=== PATIENT | female | born 1960 | race Caucasian/White ===

== ENCOUNTER 2016-07-02 13:48 | Emergency (ER) | payer OTHER ==
[~2016-07-02] VITALS: Ht 157.5 cm; Wt 75.4 kg
[~2016-07-02 13:48] MED LIST: ASCORBIC ACID500 M3 PO; ASPIR 8181 M1 PO; ATORVASTATIN CA80 MG PO; AUGMENTIN875 MG PO; BUSPAR10 MG PO; CARDIZEM CD,CA180 MG PO; DOCUSATE SODIU100 MG PO; DOXYCYCLINE HY100 M3 PO; DUONEB 2.5-0.5 M3 ML AEROSOL; ELIQUIS5 MG PO; FLUOXETINE HCL40 MG PO; FUROSEMIDE40 MG PO; GLIPIZIDE ER2.5 MG PO; GLUCOPHAGE500 MG PO; GLUCOTROL5 MG PO; JANUVIA100 MG PO; LEVAQUIN500 MG PO; LEVOFLOXACIN750 MG PO; LEXAPRO20 MG PO; LIPITOR40 MG PO; LIPITOR80 MG PO; LISINOPRIL2.5 MG PO; METFORMIN HCL1000 MG PO; MYLICON,MYLANTA80 MG PO; PREDNISONE10 M1 PO; PREDNISONE10 MG PO; PREDNISONE20 MG PO; PROAIR HFA8.5 GM IH; PROVENTIL HFA6.7 GM IH; PROVENTIL,2.5 MG/0.5 AEROSOL; SINGULAIR10 MG PO; SPIRIVA RESPIMAT4 GM IH; SYMBICORT60 INHALAT IH; TYLENOL EXTRA500 MG PO; VIBRAMYCIN100 MG PO; ZITHROMAX Z-PA250 MG PO
[2016-07-02 16:58] VITALS: BP 118/73
== END 2016-07-02 17:40 | disposition home or self-care (01) ==
LOC: EME 13:48
DX: J44.1 Chronic obstructive pulmonary disease with (acute) exacerbation (principal); E78.5 Hyperlipidemia, unspecified; I10 Essential (primary) hypertension; Z86.73 Personal history of transient ischemic attack (TIA), and cerebral infarction without residual deficits; F17.200 Nicotine dependence, unspecified, uncomplicated
CPT/HCPCS: 71020; 94640; 99281; 99284

== ENCOUNTER 2016-07-04 11:48 | Inpatient (IN) | payer OTHER ==
[~2016-07-04] VITALS: Ht 157.5 cm; Wt 71.0 kg
[2016-07-04 13:02] LABS: BASE EXCESS 20.2 mEq/L (-3 to +3); BICARBONATE 49.1 mEq/L (22-26); CARBOXY HGB 5.3 % (0-5); COMMENTS - BLOOD GASES NAC+; DEVICE PB 840 NIPPV; FI02 45 %; MODE SPONT; PCO2 91 mm Hg (35-45); PEEP 5 CM/H20; PO2 186 mm Hg (80-100); PRES. SUPPORT 15 CM/H2O; SITE RR; TOTAL RESP RATE 22 resp/min; pH 7.34 (7.35-7.45)
[2016-07-04 13:08] LABS: CHLORIDE 92 mEq/L (99-109); POTASSIUM 2.8 mEq/L (3.7-5.4); SODIUM 146 mEq/L (136-147)
[2016-07-04 13:09] LABS: GLUCOSE 267 mg/dL (70-99); HEMATOCRIT 30.1 % (36.0-46.0); MCH 29.3 PG (29.0-34.0); MCHC 28.9 G/DL (30.0-36.0); MCV 101.3 FL (83-99); MEAN PLAT.VOLUME 9.4 uM^3 (9.5-12.4); PLATELET COUNT 420 K/uL (156-360); RBC DIS.WIDTH-CV 16.1 % (11.8-14.6); RBC DIS.WIDTH-SD 59.2 % (39-53); RED BLOOD COUNT 2.97 M/uL (3.80-5.20)
[2016-07-04 13:11] LABS: ANION GAP 14 MEQ/L (2-14)
[2016-07-04 13:13] LABS: GFR ESTIMATE (CALCULATED) > 59 mL/min/
[2016-07-04 13:14] LABS: UREA NITROGEN (BUN) 6 mg/dL (9-23)
[2016-07-04 13:19] LABS: TROP-I INTERPRETATION NEGATIVE; TROPONIN-I 0.02 ng/mL (0.0-0.30)
[2016-07-04 17:28] VITALS: BP 127/55
[2016-07-04 17:30] VITALS: BP 127/55
[2016-07-04 17:59] LABS: MAGNESIUM 2.2 mg/dL (1.3-2.7)
[2016-07-04 18:21] LABS: POINT-OF-CARE METER ID UU14162636
[2016-07-04 19:09] LABS: METH RESISTANT S AUREUS PCR NEGATIVE (NEGATIVE)
[2016-07-04 19:10] LABS: PROBE CHECK PASS; SPECIMEN PROCESSING CONTROL PASS
[2016-07-04 20:00] VITALS: BP 113/54
[2016-07-04 22:00] VITALS: BP 138/67
[2016-07-05] VITALS (14 sets, daily range): BP systolic 108–143; BP diastolic 44–73
[2016-07-05 00:21] LABS: POINT-OF-CARE METER ID UU14162636
[2016-07-05 05:50] LABS: POINT-OF-CARE METER ID UU13113803
[2016-07-05 06:17] LABS: EOSINOPHIL (%) 0 % (0-5); HEMATOCRIT 28.2 % (36.0-46.0); IMMATURE GRANULOCYTE (%) 0.2 % (0.0-0.7); LYMPHOCYTE COUNT 0.5 K/uL (1.0-2.8); MCH 29.2 PG (29.0-34.0); MCHC 29.1 G/DL (30.0-36.0); MCV 100.4 FL (83-99); MEAN PLAT.VOLUME 9.5 uM^3 (9.5-12.4); MONOCYTE (%) 0.4 % (3-12); NEUTROPHIL (%) 88.2 % (45-76); PLATELET COUNT 329 K/uL (156-360); RBC DIS.WIDTH-SD 58.2 % (39-53); RED BLOOD COUNT 2.81 M/uL (3.80-5.20)
[2016-07-05 06:20] LABS: WHITE BLOOD COUNT 4.5 K/uL (4.1-10.2)
[2016-07-05 06:52] LABS: ANION GAP ND MEQ/L (2-14); CHLORIDE 97 MEQ/L (99-109); GFR ESTIMATE (CALCULATED) > 59 mL/min/; GLUCOSE 153 mg/dL (70-99); MAGNESIUM 1.7 mg/dl (1.3-2.7); SAMPLE HEMOLYSIS CHECK 0; SAMPLE ICTERIC CHECK 0; SAMPLE LIPEMIA CHECK 0; SODIUM 148 MEQ/L (136-147); UREA NITROGEN (BUN) 7 mg/dL (9-23)
[2016-07-05 06:54] LABS: CARBON DIOXIDE (BICARBONATE) > 40.0 MEQ/L (20-31); POTASSIUM 4.2 MEQ/L (3.7-5.4)
[2016-07-05 11:22] LABS: POINT-OF-CARE METER ID UU13113803
[2016-07-05] MEDS ORDERED: SINGULAIR10 MG PO (14:25)
[2016-07-05] MEDS ORDERED: BUSPIRONE HCL10 MG PO (14:27)
[2016-07-05] MEDS ORDERED: GLUCOTROL5 MG PO (14:28)
[2016-07-05] MEDS ORDERED: PROAIR HFA8.5 GM IH (14:33)
[2016-07-05] MEDS ORDERED: LIPITOR80 MG PO (14:34)
[2016-07-05] MEDS ORDERED: LEXAPRO20 MG PO (14:35)
[2016-07-05] MEDS ORDERED: SYMBICORT60 INHALAT IH (14:35)
[2016-07-05] MEDS ORDERED: GLUCOPHAGE1000 MG PO (14:36)
[2016-07-05] MEDS ORDERED: LEVOFLOXACIN500 MG PO (14:36)
[2016-07-05] MEDS ORDERED: SPIRIVA1 INHALATI IH (14:37)
[2016-07-05] MEDS ORDERED: ASCORBIC ACID500 M3 PO (14:37)
[2016-07-05] MEDS ORDERED: SPIRIVA RESPIMAT4 G1 IH (15:07)
[2016-07-05 17:32] LABS: POINT-OF-CARE METER ID UU14162636
[2016-07-05 22:47] LABS: POINT-OF-CARE METER ID UU14162636
[2016-07-06] VITALS (8 sets, daily range): BP systolic 124–160; BP diastolic 55–84
[2016-07-06 05:45] LABS: HEMATOCRIT 29.5 % (36.0-46.0); MCH 29.3 PG (29.0-34.0); MCHC 29.2 G/DL (30.0-36.0); MCV 100.3 FL (83-99); MEAN PLAT.VOLUME 9.6 uM^3 (9.5-12.4); PLATELET COUNT 344 K/uL (156-360); RBC DIS.WIDTH-CV 16.3 % (11.8-14.6); RBC DIS.WIDTH-SD 59.3 % (39-53); RED BLOOD COUNT 2.94 M/uL (3.80-5.20); WHITE BLOOD COUNT 5.8 K/uL (4.1-10.2)
[2016-07-06 06:18] LABS: EOSINOPHIL (%) 0 % (0-5); IMMATURE GRANULOCYTE (%) 0.3 % (0.0-0.7); LYMPHOCYTE COUNT 0.6 K/uL (1.0-2.8); MONOCYTE (%) 4.1 % (3-12); MONOCYTE COUNT 0.2 K/uL (0-0.8); NEUTROPHIL (%) 85.5 % (45-76)
[2016-07-06 06:20] LABS: ANION GAP ND MEQ/L (2-14); CHLORIDE 97 MEQ/L (99-109); GFR ESTIMATE (CALCULATED) > 59 mL/min/; GLUCOSE 201 mg/dL (70-99); POTASSIUM 4.1 MEQ/L (3.7-5.4); SAMPLE HEMOLYSIS CHECK 0; SAMPLE ICTERIC CHECK 0; SAMPLE LIPEMIA CHECK 0; SODIUM 147 MEQ/L (136-147); UREA NITROGEN (BUN) 18 mg/dL (9-23)
[2016-07-06 06:22] LABS: CARBON DIOXIDE (BICARBONATE) > 40.0 MEQ/L (20-31); MAGNESIUM 2.1 mg/dl (1.3-2.7)
[2016-07-06 17:22] LABS: POINT-OF-CARE METER ID UU13113748
[2016-07-06 22:14] LABS: POINT-OF-CARE METER ID UU13113748; POINT-OF-CARE USER ID PHATLC
[2016-07-07] VITALS (8 sets, daily range): BP systolic 89–144; BP diastolic 55–84
[2016-07-07 06:02] LABS: HEMATOCRIT 29.9 % (36.0-46.0); MCH 28.8 PG (29.0-34.0); MCHC 29.1 G/DL (30.0-36.0); MEAN PLAT.VOLUME 9.6 uM^3 (9.5-12.4); PLATELET COUNT 342 K/uL (156-360); RBC DIS.WIDTH-CV 16.1 % (11.8-14.6); RBC DIS.WIDTH-SD 58.4 % (39-53); RED BLOOD COUNT 3.02 M/uL (3.80-5.20); WHITE BLOOD COUNT 6.4 K/uL (4.1-10.2)
[2016-07-07 06:27] LABS: EOSINOPHIL (%) 0 % (0-5); IMMATURE GRANULOCYTE (%) 1.7 % (0.0-0.7); IMMATURE GRANULOCYTE COUNT 0.1 K/uL; LYMPHOCYTE COUNT 1.1 K/uL (1.0-2.8); MONOCYTE (%) 7.5 % (3-12); MONOCYTE COUNT 0.5 K/uL (0-0.8); NEUTROPHIL (%) 73.2 % (45-76); NEUTROPHIL COUNT 4.7 K/uL (1.8-6.4)
[2016-07-07 06:32] LABS: ALKALINE PHOSPHATASE 61 IU/L (3-129); ANION GAP ND MEQ/L (2-14); CHLORIDE 95 MEQ/L (99-109); GFR ESTIMATE (CALCULATED) > 59 mL/min/; GLUCOSE 180 mg/dL (70-99); POTASSIUM 3.7 MEQ/L (3.7-5.4); SAMPLE HEMOLYSIS CHECK 0; SAMPLE ICTERIC CHECK 0; SAMPLE LIPEMIA CHECK 0; SODIUM 145 MEQ/L (136-147); TOTAL BILIRUBIN 0.3 MG/DL (0.0-1.0); UREA NITROGEN (BUN) 14 mg/dL (9-23)
[2016-07-07 06:34] LABS: CARBON DIOXIDE (BICARBONATE) > 40.0 MEQ/L (20-31); MAGNESIUM 1.7 mg/dl (1.3-2.7)
[2016-07-07 09:59] LABS: INFLUENZA A VIRAL ANTIGEN NEGATIVE; INFLUENZA B VIRAL ANTIGEN NEGATIVE
[2016-07-07 11:57] LABS: POINT-OF-CARE METER ID UU13113731
[2016-07-07 12:46] LABS: ADD MIUA? YES; BILIRUBIN NEGATIVE; BLOOD TRACE; COLOR YELLOW ((YELLOW)); GLUCOSE (STRIP) NEGATIVE; KETONES NEGATIVE; LEUKOCYTES NEGATIVE; NITRITE NEGATIVE; PROTEIN (STRIP) NEGATIVE; SPECIFIC GRAVITY 1.013 (1.000-1.030); UROBILINOGEN 0.2 MG/DL (0.2-1.0)
[2016-07-07 13:20] LABS: WHITE BLOOD CELLS NONE SEEN /HPF (0-5)
[2016-07-07 13:21] LABS: BACTERIA NONE SEEN; CASTS PRESENT /LPF; CRYSTALS NONE SEEN; EPITHELIAL CELLS RARE; HYALINE CASTS 0-5 /LPF; MUCUS TRACE; RED BLOOD CELLS 0-5 /HPF (0-5); UCUL ADDED? NO
[2016-07-07 18:06] LABS: POINT-OF-CARE METER ID UU14162636
[2016-07-08 03:39] VITALS: BP 127/81
[2016-07-08 06:32] LABS: EOSINOPHIL (%) 0.1 % (0-5); HEMATOCRIT 30.5 % (36.0-46.0); IMMATURE GRANULOCYTE (%) 1.8 % (0.0-0.7); IMMATURE GRANULOCYTE COUNT 0.1 K/uL; LYMPHOCYTE COUNT 2.1 K/uL (1.0-2.8); MCH 29.2 PG (29.0-34.0); MCHC 29.8 G/DL (30.0-36.0); MCV 97.8 FL (83-99); MEAN PLAT.VOLUME 9.4 uM^3 (9.5-12.4); MONOCYTE (%) 9.4 % (3-12); MONOCYTE COUNT 0.7 K/uL (0-0.8); NEUTROPHIL (%) 59.6 % (45-76); NEUTROPHIL COUNT 4.2 K/uL (1.8-6.4); PLATELET COUNT 336 K/uL (156-360); RBC DIS.WIDTH-CV 15.9 % (11.8-14.6); RBC DIS.WIDTH-SD 55.9 % (39-53); RED BLOOD COUNT 3.12 M/uL (3.80-5.20); WHITE BLOOD COUNT 7.1 K/uL (4.1-10.2)
[2016-07-08 07:07] LABS: ALKALINE PHOSPHATASE 61 IU/L (3-129); ANION GAP ND MEQ/L (2-14); CHLORIDE 95 MEQ/L (99-109); GFR ESTIMATE (CALCULATED) > 59 mL/min/; GLUCOSE 138 mg/dL (70-99); MAGNESIUM 1.5 mg/dl (1.3-2.7); POTASSIUM 3.4 MEQ/L (3.7-5.4); SAMPLE HEMOLYSIS CHECK 0; SAMPLE ICTERIC CHECK 0; SAMPLE LIPEMIA CHECK 0; SODIUM 146 MEQ/L (136-147); TOTAL BILIRUBIN 0.3 MG/DL (0.0-1.0); UREA NITROGEN (BUN) 12 mg/dL (9-23)
[2016-07-08 07:14] LABS: CARBON DIOXIDE (BICARBONATE) > 40.0 MEQ/L (20-31)
[2016-07-08 07:53] VITALS: BP 135/86
[2016-07-08 08:03] LABS: INTERNAL CONTROL VALID? YES
[2016-07-08 12:14] LABS: POINT-OF-CARE METER ID UU14174225
[2016-07-08 12:19] VITALS: BP 141/72
[2016-07-08 19:35] VITALS: BP 119/73
[2016-07-09 00:06] VITALS: BP 129/61
[2016-07-09 03:51] VITALS: BP 121/69
[2016-07-09 06:40] LABS: EOSINOPHIL (%) 0.1 % (0-5); HEMATOCRIT 30.9 % (36.0-46.0); IMMATURE GRANULOCYTE (%) 1.2 % (0.0-0.7); IMMATURE GRANULOCYTE COUNT 0.1 K/uL; LYMPHOCYTE COUNT 1.7 K/uL (1.0-2.8); MCH 29.6 PG (29.0-34.0); MCHC 30.4 G/DL (30.0-36.0); MCV 97.2 FL (83-99); MEAN PLAT.VOLUME 9.7 uM^3 (9.5-12.4); MONOCYTE COUNT 0.7 K/uL (0-0.8); NEUTROPHIL (%) 66.1 % (45-76); NEUTROPHIL COUNT 4.9 K/uL (1.8-6.4); PLATELET COUNT 345 K/uL (156-360); RBC DIS.WIDTH-SD 55.4 % (39-53); RED BLOOD COUNT 3.18 M/uL (3.80-5.20); WHITE BLOOD COUNT 7.4 K/uL (4.1-10.2)
[2016-07-09 07:05] LABS: ANION GAP ND MEQ/L (2-14); CHLORIDE 97 MEQ/L (99-109); GFR ESTIMATE (CALCULATED) > 59 mL/min/; GLUCOSE 122 mg/dL (70-99); MAGNESIUM 1.4 mg/dl (1.3-2.7); POTASSIUM 3.6 MEQ/L (3.7-5.4); SAMPLE HEMOLYSIS CHECK 0; SAMPLE ICTERIC CHECK 0; SAMPLE LIPEMIA CHECK 0; SODIUM 145 MEQ/L (136-147); UREA NITROGEN (BUN) 12 mg/dL (9-23)
[2016-07-09 07:06] LABS: CARBON DIOXIDE (BICARBONATE) > 40.0 MEQ/L (20-31)
[2016-07-09 07:39] VITALS: BP 126/71
[2016-07-09 10:55] VITALS: BP 131/69
[2016-07-09 11:36] LABS: POINT-OF-CARE METER ID UU14174225
[2016-07-09] MEDS ORDERED: GLUCOPHAGE1000 MG PO (14:21)
[2016-07-09] MEDS ORDERED: PROAIR HFA8.5 GM IH (14:21)
[2016-07-09] MEDS ORDERED: ELIQUIS5 MG PO (14:21)
[2016-07-09] MEDS ORDERED: LIPITOR80 MG PO (14:21)
[2016-07-09] MEDS ORDERED: LEVOFLOXACIN500 MG PO (14:21)
[2016-07-09] MEDS ORDERED: SINGULAIR10 MG PO (14:21)
[2016-07-09] MEDS ORDERED: GLUCOTROL5 MG PO (14:21)
[2016-07-09] MEDS ORDERED: SPIRIVA RESPIMAT4 G1 IH (14:21)
[2016-07-09] MEDS ORDERED: PREDNISONE20 MG PO ×2 (14:21→14:24)
[2016-07-09] MEDS ORDERED: ASCORBIC ACID500 M3 PO (14:21)
[2016-07-09] MEDS ORDERED: LEXAPRO20 MG PO (14:21)
[2016-07-09] MEDS ORDERED: BUSPIRONE HCL10 MG PO (14:21)
[2016-07-09] MEDS ORDERED: SYMBICORT60 INHALAT IH (14:21)
[2016-07-09 15:06] VITALS: BP 129/78
== END 2016-07-09 17:23 | disposition home health service (06) | DRG 189 ==
LOC: EME → EDBD 11:48 → EME 11:48 → EDOF 15:27 → 5SOUTH 15:27 → 4WEST 15:27 → 5SOUTH 07-07 19:38
PROVIDERS: Emergency Medicine; Hospitalist; Internal Medicine; Internal Medicine Nephrology
PROC: 5A09457 Assistance with Respiratory Ventilation, 24-96 Consecutive Hours, Continuous Positive Airway Pressure (ICD-10-PCS; principal; 2016-07-05)
DX: J96.22 Acute and chronic respiratory failure with hypercapnia (principal); J18.9 Pneumonia, unspecified organism; J44.1 Chronic obstructive pulmonary disease with (acute) exacerbation; I47.1 Supraventricular tachycardia; E87.2 Acidosis; I48.92 Unspecified atrial flutter; F33.9 Major depressive disorder, recurrent, unspecified; J96.21 Acute and chronic respiratory failure with hypoxia; F17.210 Nicotine dependence, cigarettes, uncomplicated; I10 Essential (primary) hypertension; E11.40 Type 2 diabetes mellitus with diabetic neuropathy, unspecified; E87.6 Hypokalemia; Z99.81 Dependence on supplemental oxygen; E78.2 Mixed hyperlipidemia; G47.33 Obstructive sleep apnea (adult) (pediatric); Z91.128 Patient's intentional underdosing of medication regimen for other reason; G89.29 Other chronic pain; F41.0 Panic disorder [episodic paroxysmal anxiety]; E66.9 Obesity, unspecified; E11.65 Type 2 diabetes mellitus with hyperglycemia; Z68.28 Body mass index [BMI] 28.0-28.9, adult; I69.398 Other sequelae of cerebral infarction; Z82.49 Family history of ischemic heart disease and other diseases of the circulatory system
CPT/HCPCS: 36600; 71010; 71020; 71260; 80048; 80053; 81003; 82803; 82948; 83735; 84100; 84484; 85025; 85027; 87449; 87502; 87641; 93005; 94002; 94003; 94640; 94640 76; 94644; 94660; 94760; 94799; 97530 GO; 99202; 99281; 99284; 99285; J0171; J1100; J1650; J1815; J1956; J2060; J2920; J2930; J3475; J3480; J7512; J7644; S0028

== ENCOUNTER 2016-07-22 16:29 | Inpatient (IN) | payer OTHER ==
[~2016-07-22] VITALS: Ht 157.5 cm; Wt 77.1 kg
[~2016-07-22 16:29] MED LIST changes: +BUSPIRONE HCL10 MG PO; +GLUCOPHAGE1000 MG PO; +LEVOFLOXACIN500 MG PO; +SPIRIVA RESPIMAT4 G1 IH; +SPIRIVA1 INHALATI IH
[2016-07-22 16:48] LABS: BASE EXCESS 26.2 mEq/L (-3 to +3); BICARBONATE 55.8 mEq/L (22-26); CARBOXY HGB 4.9 % (0-5); PCO2 88 mm Hg (35-45); PO2 175 mm Hg (80-100); pH 7.41 (7.35-7.45)
[2016-07-22 16:54] LABS: COMMENTS - BLOOD GASES A+C+; DEVICE 840 MASK VENT; FI02 50 %; MODE SPONT; SITE LR; TOTAL RESP RATE 27 resp/min
[2016-07-22 16:55] LABS: PEEP 5 CM/H20; PRES. SUPPORT 10 CM/H2O; TIDAL VOLUME 363 ML
[2016-07-22 17:49] LABS: CHLORIDE 90 mEq/L (99-109); EOSINOPHIL (%) 0.2 % (0-5); HEMATOCRIT 31.8 % (36.0-46.0); IMMATURE GRANULOCYTE (%) 0.2 % (0.0-0.7); IMMATURE GRANULOCYTE COUNT 0.4 K/uL; LYMPHOCYTE COUNT 0.8 K/uL (1.0-2.8); MCH 28.9 PG (29.0-34.0); MCHC 29.6 G/DL (30.0-36.0); MCV 97.8 FL (83-99); MEAN PLAT.VOLUME 9.2 uM^3 (9.5-12.4); MONOCYTE (%) 4.1 % (3-12); MONOCYTE COUNT 0.7 K/uL (0-0.8); NEUTROPHIL (%) 90.6 % (45-76); NEUTROPHIL COUNT 14.7 K/uL (1.8-6.4); PLATELET COUNT 318 K/uL (156-360); RBC DIS.WIDTH-CV 15.8 % (11.8-14.6); RBC DIS.WIDTH-SD 54.1 % (39-53); RED BLOOD COUNT 3.25 M/uL (3.80-5.20); SODIUM 146 mEq/L (136-147)
[2016-07-22 17:50] LABS: INTER. NORMALIZED RATIO 1.1; PROTHROMBIN TIME 11.7 (9.2-11.2); PTT 29.3 (25-32)
[2016-07-22 17:50] LABS: MAGNESIUM 2.1 mg/dL (1.3-2.7)
[2016-07-22 17:51] LABS: GLUCOSE 155 mg/dL (70-99)
[2016-07-22 17:53] LABS: ANION GAP 13 MEQ/L (2-14)
[2016-07-22 17:55] LABS: GFR ESTIMATE (CALCULATED) > 59 mL/min/
[2016-07-22 17:56] LABS: UREA NITROGEN (BUN) 7 mg/dL (9-23)
[2016-07-22 18:00] LABS: CARBON DIOXIDE (BICARBONATE) > 40.0 mEq/L (20-31); POTASSIUM 2.4 mEq/L (3.7-5.4)
[2016-07-22 18:02] LABS: TROP-I INTERPRETATION NEGATIVE; TROPONIN-I 0.04 ng/mL (0.0-0.30)
[2016-07-22 18:30] LABS: INFLUENZA A VIRAL ANTIGEN NEGATIVE; INFLUENZA B VIRAL ANTIGEN NEGATIVE
[2016-07-22 18:39] LABS: WHITE BLOOD COUNT 16.3 K/uL (4.1-10.2)
[2016-07-22 19:06] LABS: BASE EXCESS 26.9 mEq/L (-3 to +3); CARBOXY HGB 4.7 % (0-5); pH 7.44 (7.35-7.45)
[2016-07-22 19:07] LABS: COMMENTS - BLOOD GASES A+C+; CONTINUOUS POS AIRWAY PRESSURE 5 cm H2O; DEVICE 840 MASK VENT; FI02 30 %; MODE SPONT; PCO2 81 mm Hg (35-45); PO2 66 mm Hg (80-100); PRES. SUPPORT 10 CM/H2O; SITE LR; TOTAL RESP RATE 27 resp/min
[2016-07-22] MEDS ORDERED: LEXAPRO20 MG PO (20:31)
[2016-07-22] MEDS ORDERED: SINGULAIR10 MG PO (20:32)
[2016-07-22] MEDS ORDERED: VITAMIN C500 M1 PO (20:34)
[2016-07-22 21:30] VITALS: BP 151/73
[2016-07-22 22:00] VITALS: BP 154/70
[2016-07-22 22:58] LABS: METH RESISTANT S AUREUS PCR POSITIVE (NEGATIVE)
[2016-07-22 23:00] VITALS: BP 137/67
[2016-07-22 23:01] LABS: PROBE CHECK PASS
[2016-07-23] VITALS (23 sets, daily range): BP systolic 107–156; BP diastolic 43–82
[2016-07-23 05:38] LABS: BASE EXCESS 27.2 mEq/L (-3 to +3); BICARBONATE 55.8 mEq/L (22-26); CARBOXY HGB 3.1 % (0-5); METHEMOGLOBIN 1.7 % (0-1.5); PO2 68 mm Hg (80-100); pH 7.42 (7.35-7.45)
[2016-07-23 05:39] LABS: COMMENTS - BLOOD GASES A+C+; DEVICE 840; FI02 30 %; PCO2 86 mm Hg (35-45); SITE LR; TOTAL RESP RATE 29 resp/min
[2016-07-23 06:31] LABS: ANION GAP ND MEQ/L (2-14); CARBON DIOXIDE (BICARBONATE) > 40.0 MEQ/L (20-31); CHLORIDE 91 MEQ/L (99-109); GFR ESTIMATE (CALCULATED) > 59 mL/min/; GLUCOSE 188 mg/dL (70-99); SAMPLE HEMOLYSIS CHECK 0; SAMPLE ICTERIC CHECK 0; SAMPLE LIPEMIA CHECK 0; SODIUM 145 MEQ/L (136-147); UREA NITROGEN (BUN) 6 mg/dL (9-23)
[2016-07-24] VITALS (24 sets, daily range): BP systolic 116–171; BP diastolic 48–121
[2016-07-24 05:22] LABS: BASE EXCESS 21.6 mEq/L (-3 to +3); CARBOXY HGB 2.3 % (0-5); COMMENTS - BLOOD GASES A+C+; DEVICE 840; FI02 30 %; METHEMOGLOBIN 1.3 % (0-1.5); MODE SPONT; PCO2 66 mm Hg (35-45); PO2 76 mm Hg (80-100); SITE LR; pH 7.47 (7.35-7.45)
[2016-07-24 05:23] LABS: PEEP 5 CM/H20; PRES. SUPPORT 15 CM/H2O; TOTAL RESP RATE 29 resp/min
[2016-07-24 06:21] LABS: ANION GAP 10 MEQ/L (2-14); CHLORIDE 97 MEQ/L (99-109); GFR ESTIMATE (CALCULATED) > 59 mL/min/; GLUCOSE 170 mg/dL (70-99); POTASSIUM 3.3 MEQ/L (3.7-5.4); SAMPLE HEMOLYSIS CHECK 0; SAMPLE ICTERIC CHECK 0; SAMPLE LIPEMIA CHECK 0; SODIUM 147 MEQ/L (136-147); UREA NITROGEN (BUN) 9 mg/dL (9-23)
[2016-07-24 06:59] LABS: EOSINOPHIL (%) 0 % (0-5); IMMATURE GRANULOCYTE (%) 0.2 % (0.0-0.7); LYMPHOCYTE COUNT 0.5 K/uL (1.0-2.8); MCH 28.3 PG (29.0-34.0); MCHC 29.6 G/DL (30.0-36.0); MCV 95.4 FL (83-99); MEAN PLAT.VOLUME 9.3 uM^3 (9.5-12.4); MONOCYTE (%) 5.1 % (3-12); MONOCYTE COUNT 0.5 K/uL (0-0.8); NEUTROPHIL (%) 89.7 % (45-76); NEUTROPHIL COUNT 9.5 K/uL (1.8-6.4); PLATELET COUNT 305 K/uL (156-360); RBC DIS.WIDTH-CV 16.2 % (11.8-14.6); RBC DIS.WIDTH-SD 56.6 % (39-53); RED BLOOD COUNT 2.83 M/uL (3.80-5.20)
[2016-07-24 07:00] LABS: WHITE BLOOD COUNT 10.6 K/uL (4.1-10.2)
[2016-07-24 14:04] LABS: BASE EXCESS 13.9 mEq/L (-3 to +3); BICARBONATE 41.2 mEq/L (22-26); DEVICE HHFNC; FI02 30 %; METHEMOGLOBIN 1.5 % (0-1.5); O2 FLOW 40 L/MIN; PCO2 68 mm Hg (35-45); PO2 69 mm Hg (80-100); SITE LR; pH 7.39 (7.35-7.45)
[2016-07-24 14:05] LABS: TOTAL RESP RATE 28 resp/min
[2016-07-24 15:45] LABS: POINT-OF-CARE METER ID UU13113803
[2016-07-24 21:44] LABS: POINT-OF-CARE METER ID UU14162636
[2016-07-25] VITALS (24 sets, daily range): BP systolic 100–170; BP diastolic 54–89
[2016-07-25 08:12] LABS: POINT-OF-CARE METER ID UU13113748
[2016-07-25 12:15] LABS: POINT-OF-CARE METER ID UU14162636
[2016-07-25 15:45] LABS: POINT-OF-CARE METER ID UU14162636
[2016-07-25 22:05] LABS: POINT-OF-CARE METER ID UU13113748; POINT-OF-CARE USER ID LABHNS84
[2016-07-26] VITALS (25 sets, daily range): BP systolic 132–167; BP diastolic 59–105
[2016-07-26 06:19] LABS: ANION GAP 6 MEQ/L (2-14); CHLORIDE 97 MEQ/L (99-109); GFR ESTIMATE (CALCULATED) > 59 mL/min/; GLUCOSE 199 mg/dL (70-99); POTASSIUM 3.8 MEQ/L (3.7-5.4); SAMPLE HEMOLYSIS CHECK 0; SAMPLE ICTERIC CHECK 0; SAMPLE LIPEMIA CHECK 0; SODIUM 142 MEQ/L (136-147); UREA NITROGEN (BUN) 9 mg/dL (9-23)
[2016-07-26 06:28] LABS: BASE EXCESS 14.6 mEq/L (-3 to +3); BICARBONATE 40.8 mEq/L (22-26); CARBOXY HGB 1.9 % (0-5); METHEMOGLOBIN 1.6 % (0-1.5); PO2 64 mm Hg (80-100); pH 7.44 (7.35-7.45)
[2016-07-26 06:29] LABS: COMMENTS - BLOOD GASES C+; DEVICE 840; FI02 30 %; MODE NIV; PCO2 60 mm Hg (35-45); PEEP 5 CM/H20; PRES. SUPPORT 15 CM/H2O; SITE RR; TOTAL RESP RATE 26 resp/min
[2016-07-26 08:29] LABS: POINT-OF-CARE METER ID UU13113748
[2016-07-26 21:51] LABS: POINT-OF-CARE METER ID UU13113731; POINT-OF-CARE USER ID ENVSME70
[2016-07-27] VITALS (24 sets, daily range): BP systolic 94–150; BP diastolic 53–89
[2016-07-27 07:05] LABS: ANION GAP 7 MEQ/L (2-14); CHLORIDE 97 MEQ/L (99-109); GFR ESTIMATE (CALCULATED) > 59 mL/min/; GLUCOSE 180 mg/dL (70-99); POTASSIUM 3.9 MEQ/L (3.7-5.4); SAMPLE HEMOLYSIS CHECK 0; SAMPLE ICTERIC CHECK 0; SAMPLE LIPEMIA CHECK 0; SODIUM 143 MEQ/L (136-147); UREA NITROGEN (BUN) 7 mg/dL (9-23)
[2016-07-27 08:32] LABS: POINT-OF-CARE METER ID UU13113803
[2016-07-27 11:52] LABS: POINT-OF-CARE METER ID UU13113803
[2016-07-27 17:21] LABS: POINT-OF-CARE METER ID UU13113803
[2016-07-27 23:24] LABS: POINT-OF-CARE METER ID UU13113803; POINT-OF-CARE USER ID LABHNS84
[2016-07-28] VITALS (26 sets, daily range): BP systolic 0–151; BP diastolic 0–93
[2016-07-28 08:06] LABS: POINT-OF-CARE METER ID UU13113731
[2016-07-28 12:13] LABS: ANION GAP 9 MEQ/L (2-14); CHLORIDE 97 MEQ/L (99-109); GFR ESTIMATE (CALCULATED) > 59 mL/min/; GLUCOSE 240 mg/dL (70-99); POTASSIUM 4.4 MEQ/L (3.7-5.4); SAMPLE HEMOLYSIS CHECK 0; SAMPLE ICTERIC CHECK 0; SAMPLE LIPEMIA CHECK 0; SODIUM 144 MEQ/L (136-147); UREA NITROGEN (BUN) 10 mg/dL (9-23)
[2016-07-28 12:50] LABS: POINT-OF-CARE METER ID UU13113803
[2016-07-28 16:52] LABS: POINT-OF-CARE METER ID UU13113803
[2016-07-28 22:42] LABS: POINT-OF-CARE METER ID UU14162636; POINT-OF-CARE USER ID RADDRS44
[2016-07-29] VITALS (28 sets, daily range): BP systolic 81–145; BP diastolic 48–87
[2016-07-29 07:33] LABS: POINT-OF-CARE METER ID UU14162636
[2016-07-29 09:16] LABS: ALKALINE PHOSPHATASE 74 IU/L (3-129); ANION GAP 8 MEQ/L (2-14); CHLORIDE 96 MEQ/L (99-109); GFR ESTIMATE (CALCULATED) > 59 mL/min/; GLUCOSE 262 mg/dL (70-99); MAGNESIUM 2.1 mg/dl (1.3-2.7); POTASSIUM 4.5 MEQ/L (3.7-5.4); SAMPLE HEMOLYSIS CHECK 0; SAMPLE ICTERIC CHECK 0; SAMPLE LIPEMIA CHECK 0; SODIUM 144 MEQ/L (136-147); TOTAL BILIRUBIN 0.3 MG/DL (0.0-1.0); UREA NITROGEN (BUN) 10 mg/dL (9-23)
[2016-07-29 21:48] LABS: POINT-OF-CARE USER ID LABHNS84
[2016-07-30] VITALS (20 sets, daily range): BP systolic 91–131; BP diastolic 57–90
[2016-07-30 05:59] LABS: HEMATOCRIT 31.6 % (36.0-46.0); MCH 28.5 PG (29.0-34.0); MCHC 28.5 G/DL (30.0-36.0); MEAN PLAT.VOLUME 9.3 uM^3 (9.5-12.4); PLATELET COUNT 443 K/uL (156-360); RBC DIS.WIDTH-SD 61.2 % (39-53); RED BLOOD COUNT 3.16 M/uL (3.80-5.20); WHITE BLOOD COUNT 9.8 K/uL (4.1-10.2)
[2016-07-30 06:19] LABS: ANION GAP ND MEQ/L (2-14); CHLORIDE 95 MEQ/L (99-109); GFR ESTIMATE (CALCULATED) > 59 mL/min/; GLUCOSE 224 mg/dL (70-99); MAGNESIUM 1.8 mg/dl (1.3-2.7); POTASSIUM 4.9 MEQ/L (3.7-5.4); SAMPLE HEMOLYSIS CHECK 0; SAMPLE ICTERIC CHECK 0; SAMPLE LIPEMIA CHECK 0; SODIUM 146 MEQ/L (136-147); UREA NITROGEN (BUN) 12 mg/dL (9-23)
[2016-07-30 06:38] LABS: CARBON DIOXIDE (BICARBONATE) > 40.0 MEQ/L (20-31)
[2016-07-30 08:44] LABS: POINT-OF-CARE METER ID UU13113803
[2016-07-30 12:10] LABS: POINT-OF-CARE METER ID UU14162636
[2016-07-30 18:02] LABS: POINT-OF-CARE METER ID UU14162636
[2016-07-30 22:17] LABS: POINT-OF-CARE METER ID UU14162636
[2016-07-31] VITALS (11 sets, daily range): BP systolic 98–138; BP diastolic 48–81
[2016-07-31 06:17] LABS: HEMATOCRIT 31.2 % (36.0-46.0); MCH 28.6 PG (29.0-34.0); MCHC 29.2 G/DL (30.0-36.0); MCV 98.1 FL (83-99); MEAN PLAT.VOLUME 9.1 uM^3 (9.5-12.4); PLATELET COUNT 436 K/uL (156-360); RBC DIS.WIDTH-CV 16.8 % (11.8-14.6); RED BLOOD COUNT 3.18 M/uL (3.80-5.20)
[2016-07-31 06:23] LABS: WHITE BLOOD COUNT 13.2 K/uL (4.1-10.2)
[2016-07-31 06:44] LABS: ANION GAP ND MEQ/L (2-14); CHLORIDE 91 MEQ/L (99-109); GFR ESTIMATE (CALCULATED) > 59 mL/min/; GLUCOSE 292 mg/dL (70-99); MAGNESIUM 1.6 mg/dl (1.3-2.7); POTASSIUM 5.1 MEQ/L (3.7-5.4); SAMPLE HEMOLYSIS CHECK 0; SAMPLE ICTERIC CHECK 0; SAMPLE LIPEMIA CHECK 0; SODIUM 144 MEQ/L (136-147); UREA NITROGEN (BUN) 12 mg/dL (9-23)
[2016-07-31 06:54] LABS: CARBON DIOXIDE (BICARBONATE) > 40.0 MEQ/L (20-31)
[2016-07-31 08:47] LABS: BASE EXCESS 28.1 mEq/L (-3 to +3); CARBOXY HGB 1.6 % (0-5); METHEMOGLOBIN 1.6 % (0-1.5); PCO2 90 mm Hg (35-45); PO2 166 mm Hg (80-100); pH 7.41 (7.35-7.45)
[2016-07-31 08:48] LABS: COMMENTS - BLOOD GASES A+C+; DEVICE NC; O2 FLOW 6 L/MIN; SITE RR; TOTAL RESP RATE 12 resp/min
[2016-07-31 22:57] LABS: POINT-OF-CARE METER ID UU14162636
[2016-08-01] VITALS (9 sets, daily range): BP systolic 96–173; BP diastolic 58–88
[2016-08-01 05:52] LABS: HEMATOCRIT 32.1 % (36.0-46.0); MCH 28.8 PG (29.0-34.0); MCHC 29.9 G/DL (30.0-36.0); MCV 96.4 FL (83-99); MEAN PLAT.VOLUME 9.5 uM^3 (9.5-12.4); PLATELET COUNT 464 K/uL (156-360); RBC DIS.WIDTH-CV 16.5 % (11.8-14.6); RBC DIS.WIDTH-SD 57.9 % (39-53); RED BLOOD COUNT 3.33 M/uL (3.80-5.20); WHITE BLOOD COUNT 10.1 K/uL (4.1-10.2)
[2016-08-01 06:38] LABS: ANION GAP ND MEQ/L (2-14); CHLORIDE 87 MEQ/L (99-109); GFR ESTIMATE (CALCULATED) > 59 mL/min/; GLUCOSE 269 mg/dL (70-99); MAGNESIUM 1.5 mg/dl (1.3-2.7); POTASSIUM 4.3 MEQ/L (3.7-5.4); SAMPLE HEMOLYSIS CHECK 0; SAMPLE ICTERIC CHECK 0; SAMPLE LIPEMIA CHECK 0; SODIUM 140 MEQ/L (136-147); UREA NITROGEN (BUN) 13 mg/dL (9-23)
[2016-08-01 06:39] LABS: CARBON DIOXIDE (BICARBONATE) > 40.0 MEQ/L (20-31)
[2016-08-01 12:36] LABS: POINT-OF-CARE METER ID UU13113803
[2016-08-01 22:38] LABS: POINT-OF-CARE METER ID UU14149397
[2016-08-02] VITALS (7 sets, daily range): BP systolic 100–166; BP diastolic 57–82
[2016-08-02 06:24] LABS: HEMATOCRIT 33.1 % (36.0-46.0); MCH 27.5 PG (29.0-34.0); MCHC 28.7 G/DL (30.0-36.0); MCV 95.7 FL (83-99); MEAN PLAT.VOLUME 9.1 uM^3 (9.5-12.4); NRBC (%) 0.2 /100 WBC (0-0); PLATELET COUNT 491 K/uL (156-360); RBC DIS.WIDTH-CV 16.7 % (11.8-14.6); RBC DIS.WIDTH-SD 58.2 % (39-53); RED BLOOD COUNT 3.46 M/uL (3.80-5.20); WHITE BLOOD COUNT 10.1 K/uL (4.1-10.2)
[2016-08-02 06:26] LABS: POINT-OF-CARE METER ID UU14188577
[2016-08-02 06:48] LABS: ANION GAP ND MEQ/L (2-14); CHLORIDE 87 MEQ/L (99-109); GFR ESTIMATE (CALCULATED) > 59 mL/min/; GLUCOSE 289 mg/dL (70-99); MAGNESIUM 1.4 mg/dl (1.3-2.7); POTASSIUM 3.7 MEQ/L (3.7-5.4); SAMPLE HEMOLYSIS CHECK 0; SAMPLE ICTERIC CHECK 0; SAMPLE LIPEMIA CHECK 0; SODIUM 139 MEQ/L (136-147); UREA NITROGEN (BUN) 14 mg/dL (9-23)
[2016-08-02 06:57] LABS: CARBON DIOXIDE (BICARBONATE) > 40.0 MEQ/L (20-31)
[2016-08-02 08:51] LABS: EOSINOPHIL (%) 0 % (0-5); HEMATOLOGY COMMENT 1 SMEAR COMPATIBLE; IMMATURE GRANULOCYTE (%) 2.5 % (0.0-0.7); IMMATURE GRANULOCYTE COUNT 0.3 K/uL; LYMPHOCYTE COUNT 0.3 K/uL (1.0-2.8); MONOCYTE (%) 4.2 % (3-12); MONOCYTE COUNT 0.4 K/uL (0-0.8); NEUTROPHIL (%) 89.9 % (45-76); NEUTROPHIL COUNT 9.1 K/uL (1.8-6.4); PLAT.SUFFICIENCY INCREASED; USER ID TLW
[2016-08-02 09:09] LABS: BICARBONATE 54.2 mEq/L (22-26); CARBOXY HGB 1.8 % (0-5); COMMENTS - BLOOD GASES A+C+; DEVICE NC; METHEMOGLOBIN 1.9 % (0-1.5); O2 FLOW 4 L/MIN; PCO2 78 mm Hg (35-45); PO2 79 mm Hg (80-100); SITE RR; pH 7.45 (7.35-7.45)
[2016-08-02 09:10] LABS: TOTAL RESP RATE 22 resp/min
[2016-08-02 21:32] LABS: POINT-OF-CARE METER ID UU14149397
[2016-08-03 04:34] VITALS: BP 149/67
[2016-08-03 05:38] LABS: HEMATOCRIT 32.4 % (36.0-46.0); MCH 28.2 PG (29.0-34.0); MCHC 29.6 G/DL (30.0-36.0); MCV 95.3 FL (83-99); MEAN PLAT.VOLUME 9.5 uM^3 (9.5-12.4); PLATELET COUNT 446 K/uL (156-360); RBC DIS.WIDTH-CV 16.4 % (11.8-14.6); RBC DIS.WIDTH-SD 57.6 % (39-53); WHITE BLOOD COUNT 9.8 K/uL (4.1-10.2)
[2016-08-03 06:16] LABS: ANION GAP ND MEQ/L (2-14); CARBON DIOXIDE (BICARBONATE) > 40.0 MEQ/L (20-31); CHLORIDE 87 MEQ/L (99-109); GFR ESTIMATE (CALCULATED) > 59 mL/min/; GLUCOSE 253 mg/dL (70-99); MAGNESIUM 1.9 mg/dl (1.3-2.7); POTASSIUM 3.7 MEQ/L (3.7-5.4); SAMPLE HEMOLYSIS CHECK 0; SAMPLE ICTERIC CHECK 0; SAMPLE LIPEMIA CHECK 0; SODIUM 141 MEQ/L (136-147); UREA NITROGEN (BUN) 17 mg/dL (9-23)
[2016-08-03 07:37] VITALS: BP 137/71
[2016-08-03 11:26] VITALS: BP 160/63
[2016-08-03 16:28] VITALS: BP 158/75
[2016-08-03 20:23] VITALS: BP 158/78
[2016-08-04 00:43] VITALS: BP 147/63
[2016-08-04 04:38] VITALS: BP 141/63
[2016-08-04 07:25] LABS: HEMATOCRIT 33.1 % (36.0-46.0); MCH 28.3 PG (29.0-34.0); MCV 97.6 FL (83-99); MEAN PLAT.VOLUME 9.5 uM^3 (9.5-12.4); PLATELET COUNT 396 K/uL (156-360); RBC DIS.WIDTH-CV 16.6 % (11.8-14.6); RED BLOOD COUNT 3.39 M/uL (3.80-5.20); WHITE BLOOD COUNT 9.5 K/uL (4.1-10.2)
[2016-08-04 07:31] LABS: ANION GAP ND MEQ/L (2-14); CHLORIDE 90 MEQ/L (99-109); GFR ESTIMATE (CALCULATED) > 59 mL/min/; GLUCOSE 227 mg/dL (70-99); MAGNESIUM 1.7 mg/dl (1.3-2.7); POTASSIUM 4.4 MEQ/L (3.7-5.4); SAMPLE HEMOLYSIS CHECK 0; SAMPLE ICTERIC CHECK 0; SAMPLE LIPEMIA CHECK 0; SODIUM 142 MEQ/L (136-147); UREA NITROGEN (BUN) 19 mg/dL (9-23)
[2016-08-04 07:32] LABS: CARBON DIOXIDE (BICARBONATE) > 40.0 MEQ/L (20-31)
[2016-08-04 08:15] VITALS: BP 148/70
[2016-08-04 12:26] LABS: POINT-OF-CARE METER ID UU14149397
[2016-08-04 13:39] VITALS: BP 146/64
[2016-08-04] MEDS ORDERED: CARDIZEM CD120 M1 PO (14:20)
[2016-08-04] MEDS ORDERED: FUROSEMIDE20 MG PO (14:20)
[2016-08-04] MEDS ORDERED: TRAMADOL HCL50 MG PO (14:20)
[2016-08-04] MEDS ORDERED: CLARITIN-D 121 EACH PO ×2 (14:20→14:43)
[2016-08-04] MEDS ORDERED: PREDNISONE10 M1 PO ×2 (14:20→14:43)
[2016-08-04] MEDS ORDERED: PROBIOTIC1 EAC7 PO ×2 (14:20→14:43)
[2016-08-04] MEDS ORDERED: THEOPHYLLINE400 MG PO ×2 (14:20→14:43)
[2016-08-04] MEDS ORDERED: AUGMENTIN875 MG PO ×2 (14:20→14:43)
[2016-08-04] MEDS ORDERED: NICOTINE PATCH1 EAC2 TD (14:20)
[2016-08-04 17:22] VITALS: BP 146/65
[2016-08-04 20:12] VITALS: BP 150/70
[2016-08-05] VITALS: BP 135/63
[2016-08-05 05:46] LABS: HEMATOCRIT 32.4 % (36.0-46.0); MCH 29.1 PG (29.0-34.0); MCHC 29.3 G/DL (30.0-36.0); MCV 99.1 FL (83-99); MEAN PLAT.VOLUME 9.5 uM^3 (9.5-12.4); PLATELET COUNT 385 K/uL (156-360); RBC DIS.WIDTH-CV 16.7 % (11.8-14.6); RED BLOOD COUNT 3.27 M/uL (3.80-5.20); WHITE BLOOD COUNT 9.7 K/uL (4.1-10.2)
[2016-08-05 06:40] LABS: ANION GAP ND MEQ/L (2-14); CHLORIDE 89 MEQ/L (99-109); GFR ESTIMATE (CALCULATED) > 59 mL/min/; GLUCOSE 172 mg/dL (70-99); MAGNESIUM 1.7 mg/dl (1.3-2.7); POTASSIUM 4.8 MEQ/L (3.7-5.4); SAMPLE HEMOLYSIS CHECK 0; SAMPLE ICTERIC CHECK 0; SAMPLE LIPEMIA CHECK 0; SODIUM 143 MEQ/L (136-147); UREA NITROGEN (BUN) 22 mg/dL (9-23)
[2016-08-05 06:42] LABS: CARBON DIOXIDE (BICARBONATE) > 40.0 MEQ/L (20-31)
[2016-08-05 07:56] VITALS: BP 116/56
[2016-08-06] MEDS ORDERED: BAYER CHEWABLE81 MG PO (20:17)
== END 2016-08-05 16:21 | disposition home health service (06) | DRG 189 ==
LOC: EME 16:29 → 4WEST 20:26 → EDOF 20:26 → 3EAST 20:26 → 4WEST 21:02 → 3EAST 08-01 15:12
PROVIDERS: Emergency Medicine; Hospitalist; Internal Medicine; Internal Medicine Critical Care Medicine; Internal Medicine Pulmonary Disease; Surgery
PROC: 5A09357 Assistance with Respiratory Ventilation, Less than 24 Consecutive Hours, Continuous Positive Airway Pressure (ICD-10-PCS; principal; 2016-07-22)
DX: J96.21 Acute and chronic respiratory failure with hypoxia (principal); J96.22 Acute and chronic respiratory failure with hypercapnia; J44.0 Chronic obstructive pulmonary disease with (acute) lower respiratory infection; J20.9 Acute bronchitis, unspecified; J44.1 Chronic obstructive pulmonary disease with (acute) exacerbation; E87.6 Hypokalemia; E87.8 Other disorders of electrolyte and fluid balance, not elsewhere classified; I48.92 Unspecified atrial flutter; I48.91 Unspecified atrial fibrillation; Z99.81 Dependence on supplemental oxygen; E11.65 Type 2 diabetes mellitus with hyperglycemia; T38.0X5A Adverse effect of glucocorticoids and synthetic analogues, initial encounter; D63.8 Anemia in other chronic diseases classified elsewhere; K59.00 Constipation, unspecified; G47.33 Obstructive sleep apnea (adult) (pediatric); M41.9 Scoliosis, unspecified; I10 Essential (primary) hypertension; G89.29 Other chronic pain; M54.9 Dorsalgia, unspecified; F32.9 Major depressive disorder, single episode, unspecified; F41.9 Anxiety disorder, unspecified; E78.5 Hyperlipidemia, unspecified; F17.200 Nicotine dependence, unspecified, uncomplicated; E66.9 Obesity, unspecified; Z68.31 Body mass index [BMI] 31.0-31.9, adult; Z86.73 Personal history of transient ischemic attack (TIA), and cerebral infarction without residual deficits; Z86.718 Personal history of other venous thrombosis and embolism
CPT/HCPCS: 36600; 71010; 80048; 80053; 82803; 82948; 83605; 83735; 83880; 84100; 84132; 84484; 85025; 85027; 85610; 85730; 87040; 87502; 87641; 93005; 94002; 94003; 94010; 94640; 94640 76; 94660; 94760; 94799; 97530 GO; 97530 GP; 99202; 99281; 99285; J0456; J0692; J1100; J1815; J1940; J2060; J2405; J2920; J2930; J3105; J3475; J3480; J7030; J7050; J7644

== ENCOUNTER 2016-08-06 16:05 | Inpatient (IN) | payer OTHER ==
[~2016-08-06] VITALS: Ht 160 cm; Wt 77.5 kg
[~2016-08-06 16:05] MED LIST changes: +CARDIZEM CD120 M1 PO; +CLARITIN-D 121 EACH PO; +FUROSEMIDE20 MG PO; +NICOTINE PATCH1 EAC2 TD; +PROBIOTIC1 EAC7 PO; +THEOPHYLLINE400 MG PO; +TRAMADOL HCL50 MG PO; +VITAMIN C500 M1 PO
[2016-08-06 16:37] LABS: BASE EXCESS 29.8 mEq/L (-3 to +3); BICARBONATE 60.3 mEq/L (22-26); METHEMOGLOBIN 1.3 % (0-1.5); pH 7.38 (7.35-7.45)
[2016-08-06 16:38] LABS: COMMENTS - BLOOD GASES A+C+; DEVICE 840; FI02 100 %; MODE NIV; PCO2 102 mm Hg (35-45); PEEP 5 CM/H20; PO2 447 mm Hg (80-100); PRES. SUPPORT 12 CM/H2O; SITE RR; TOTAL RESP RATE 26 resp/min
[2016-08-06 16:47] LABS: EOSINOPHIL (%) 0.1 % (0-5); HEMATOCRIT 37.4 % (36.0-46.0); IMMATURE GRANULOCYTE (%) 1.7 % (0.0-0.7); IMMATURE GRANULOCYTE COUNT 3.3 K/uL; LYMPHOCYTE COUNT 1.7 K/uL (1.0-2.8); MCH 28.8 PG (29.0-34.0); MCHC 29.1 G/DL (30.0-36.0); MCV 98.9 FL (83-99); MEAN PLAT.VOLUME 8.9 uM^3 (9.5-12.4); MONOCYTE (%) 6.2 % (3-12); MONOCYTE COUNT 1.2 K/uL (0-0.8); NEUTROPHIL (%) 82.9 % (45-76); PLATELET COUNT 390 K/uL (156-360); RBC DIS.WIDTH-CV 17.1 % (11.8-14.6); RBC DIS.WIDTH-SD 59.5 % (39-53); RED BLOOD COUNT 3.78 M/uL (3.80-5.20)
[2016-08-06 16:48] LABS: WHITE BLOOD COUNT 19.4 K/uL (4.1-10.2)
[2016-08-06 16:53] LABS: PROTHROMBIN TIME 10.4 (9.2-11.2)
[2016-08-06 16:58] LABS: CHLORIDE 89 mEq/L (99-109); POTASSIUM 5.2 mEq/L (3.7-5.4); SODIUM 144 mEq/L (136-147)
[2016-08-06 16:59] LABS: MAGNESIUM 1.9 mg/dL (1.3-2.7)
[2016-08-06 17:00] LABS: GLUCOSE 205 mg/dL (70-99)
[2016-08-06 17:02] LABS: ANION GAP 11 MEQ/L (2-14)
[2016-08-06 17:04] LABS: GFR ESTIMATE (CALCULATED) > 59 mL/min/
[2016-08-06 17:05] LABS: UREA NITROGEN (BUN) 23 mg/dL (9-23)
[2016-08-06 17:06] LABS: CARBON DIOXIDE (BICARBONATE) > 40.0 mEq/L (20-31)
[2016-08-06 17:07] LABS: TROP-I INTERPRETATION NEGATIVE; TROPONIN-I 0.08 ng/mL (0.0-0.30)
[2016-08-06] MEDS ORDERED: BAYER CHEWABLE81 MG PO (20:17)
[2016-08-06 23:29] LABS: TROP-I INTERPRETATION NEGATIVE; TROPONIN-I 0.14 ng/mL (0.0-0.30)
[2016-08-07 00:04] LABS: POINT-OF-CARE METER ID UU13113702; POINT-OF-CARE USER ID SNPMEH
[2016-08-07 01:27] LABS: ADD MIUA? NO; BILIRUBIN NEGATIVE; BLOOD NEGATIVE; COLOR YELLOW ((YELLOW)); GLUCOSE (STRIP) 250; KETONES NEGATIVE; LEUKOCYTES NEGATIVE; NITRITE NEGATIVE; PH, URINE 7.5 (5-8); PROTEIN (STRIP) NEGATIVE; SPECIFIC GRAVITY 1.013 (1.000-1.030); UROBILINOGEN 0.2 MG/DL (0.2-1.0)
[2016-08-07 05:07] LABS: HEMATOCRIT 35.6 % (36.0-46.0); MCH 28.5 PG (29.0-34.0); MCHC 28.7 G/DL (30.0-36.0); MCV 99.4 FL (83-99); MEAN PLAT.VOLUME 9.1 uM^3 (9.5-12.4); PLATELET COUNT 333 K/uL (156-360); RBC DIS.WIDTH-CV 17.4 % (11.8-14.6); RBC DIS.WIDTH-SD 60.8 % (39-53); RED BLOOD COUNT 3.58 M/uL (3.80-5.20); WHITE BLOOD COUNT 14.3 K/uL (4.1-10.2)
[2016-08-07 05:15] LABS: CHLORIDE 84 mEq/L (99-109); POTASSIUM 4.5 mEq/L (3.7-5.4); SODIUM 145 mEq/L (136-147)
[2016-08-07 05:18] LABS: GLUCOSE 245 mg/dL (70-99)
[2016-08-07 05:20] LABS: TOTAL BILIRUBIN 0.4 mg/dL (0.0-1.0)
[2016-08-07 05:21] LABS: ALKALINE PHOSPHATASE 75 IU/L (3-129); GFR ESTIMATE (CALCULATED) > 59 mL/min/
[2016-08-07 05:22] LABS: UREA NITROGEN (BUN) 22 mg/dL (9-23)
[2016-08-07 05:26] LABS: CARBON DIOXIDE (BICARBONATE) > 40.0 mEq/L (20-31)
[2016-08-07 05:28] LABS: TROP-I INTERPRETATION NEGATIVE
[2016-08-07 07:30] LABS: BASE EXCESS 32.7 mEq/L (-3 to +3); BICARBONATE 63.3 mEq/L (22-26); CARBOXY HGB 2.5 % (0-5); COMMENTS - BLOOD GASES A+C+; DEVICE NC; METHEMOGLOBIN 1.2 % (0-1.5); O2 FLOW 4 L/MIN; PCO2 107 mm Hg (35-45); PO2 82 mm Hg (80-100); SITE RR; pH 7.38 (7.35-7.45)
[2016-08-07 08:19] LABS: POINT-OF-CARE METER ID UU13113702
[2016-08-07 08:48] VITALS: BP 144/77
[2016-08-07 11:22] LABS: POINT-OF-CARE METER ID UU13113702
[2016-08-07 11:57] VITALS: BP 142/64
[2016-08-07 15:11] VITALS: BP 112/66
[2016-08-07 15:44] LABS: POINT-OF-CARE METER ID UU13113702
[2016-08-07 17:02] LABS: POINT-OF-CARE METER ID UU13113702
[2016-08-07 18:24] VITALS: BP 121/85
[2016-08-07 21:34] VITALS: BP 145/75
[2016-08-07 22:34] LABS: POINT-OF-CARE METER ID UU14174216
[2016-08-07 23:24] LABS: TROP-I INTERPRETATION NEGATIVE; TROPONIN-I 0.07 ng/mL (0.0-0.30)
[2016-08-08 01:30] VITALS: BP 149/74
[2016-08-08 06:09] VITALS: BP 145/76
[2016-08-08 07:20] VITALS: BP 136/65
[2016-08-08 07:41] LABS: POINT-OF-CARE METER ID UU13113781
[2016-08-08 11:47] VITALS: BP 131/60
[2016-08-08 16:00] VITALS: BP 129/58
[2016-08-08 21:39] VITALS: BP 179/81
[2016-08-09] VITALS (7 sets, daily range): BP systolic 121–151; BP diastolic 60–72
[2016-08-09 07:25] LABS: DELETE MACHINE DIFF? YES
[2016-08-09 07:26] LABS: HEMATOCRIT 29.3 % (36.0-46.0); MCH 28.5 PG (29.0-34.0); MCHC 30.4 G/DL (30.0-36.0); MEAN PLAT.VOLUME 9.7 uM^3 (9.5-12.4); PLATELET COUNT 235 K/uL (156-360); RBC DIS.WIDTH-CV 17.5 % (11.8-14.6); RBC DIS.WIDTH-SD 59.5 % (39-53); RED BLOOD COUNT 3.12 M/uL (3.80-5.20)
[2016-08-09 07:32] LABS: MCV 93.9 FL (83-99); WHITE BLOOD COUNT 9.1 K/uL (4.1-10.2)
[2016-08-09 07:35] LABS: ANION GAP ND MEQ/L (2-14); CHLORIDE 90 MEQ/L (99-109); GFR ESTIMATE (CALCULATED) > 59 mL/min/; GLUCOSE 249 mg/dL (70-99); POTASSIUM 4.1 MEQ/L (3.7-5.4); SAMPLE HEMOLYSIS CHECK 0; SAMPLE ICTERIC CHECK 0; SAMPLE LIPEMIA CHECK 0; SODIUM 140 MEQ/L (136-147); UREA NITROGEN (BUN) 17 mg/dL (9-23)
[2016-08-09 07:37] LABS: CARBON DIOXIDE (BICARBONATE) > 40.0 MEQ/L (20-31)
[2016-08-09 08:38] LABS: ANISOCYTOSIS 1+; MICROCYTOSIS OCC; PLAT.SUFFICIENCY ADEQUATE; SMUDGE CELLS 0; USER ID STC
[2016-08-09 16:22] LABS: POINT-OF-CARE METER ID UU14174216
[2016-08-10 05:43] VITALS: BP 146/67
[2016-08-10 06:49] LABS: HEMATOCRIT 30.3 % (36.0-46.0); MCH 28.9 PG (29.0-34.0); MCHC 30.7 G/DL (30.0-36.0); MCV 94.1 FL (83-99); MEAN PLAT.VOLUME 9.7 uM^3 (9.5-12.4); PLATELET COUNT 196 K/uL (156-360); RBC DIS.WIDTH-CV 17.4 % (11.8-14.6); RBC DIS.WIDTH-SD 60.1 % (39-53); RED BLOOD COUNT 3.22 M/uL (3.80-5.20); WHITE BLOOD COUNT 6.5 K/uL (4.1-10.2)
[2016-08-10 06:55] LABS: EOSINOPHIL (%) 0 % (0-5); IMMATURE GRANULOCYTE (%) 0.3 % (0.0-0.7); LYMPHOCYTE COUNT 0.2 K/uL (1.0-2.8); MONOCYTE (%) 3.6 % (3-12); MONOCYTE COUNT 0.2 K/uL (0-0.8); NEUTROPHIL (%) 93.5 % (45-76); NEUTROPHIL COUNT 6.1 K/uL (1.8-6.4)
[2016-08-10 07:26] LABS: ANION GAP ND MEQ/L (2-14); CHLORIDE 91 MEQ/L (99-109); GFR ESTIMATE (CALCULATED) > 59 mL/min/; GLUCOSE 176 mg/dL (70-99); POTASSIUM 4.2 MEQ/L (3.7-5.4); SAMPLE HEMOLYSIS CHECK 0; SAMPLE ICTERIC CHECK 0; SAMPLE LIPEMIA CHECK 0; SODIUM 143 MEQ/L (136-147); UREA NITROGEN (BUN) 18 mg/dL (9-23)
[2016-08-10 07:28] LABS: CARBON DIOXIDE (BICARBONATE) > 40.0 MEQ/L (20-31)
[2016-08-10 07:46] LABS: POINT-OF-CARE METER ID UU14174216
[2016-08-10 08:30] VITALS: BP 124/87
[2016-08-10 11:49] LABS: POINT-OF-CARE METER ID UU14174216
[2016-08-10 12:14] VITALS: BP 133/58
[2016-08-10 16:17] LABS: POINT-OF-CARE METER ID UU14174216
[2016-08-10 16:30] VITALS: BP 126/58
[2016-08-10 20:44] VITALS: BP 146/68
[2016-08-10 20:52] LABS: POINT-OF-CARE METER ID UU13113698
[2016-08-11] VITALS: BP 175/83
[2016-08-11 04:12] VITALS: BP 142/72
[2016-08-11 06:44] LABS: HEMATOCRIT 34.1 % (36.0-46.0); MCH 28.3 PG (29.0-34.0); MCHC 30.2 G/DL (30.0-36.0); MCV 93.7 FL (83-99); MEAN PLAT.VOLUME 9.7 uM^3 (9.5-12.4); PLATELET COUNT 216 K/uL (156-360); RBC DIS.WIDTH-CV 17.6 % (11.8-14.6); RED BLOOD COUNT 3.64 M/uL (3.80-5.20); WHITE BLOOD COUNT 6.9 K/uL (4.1-10.2)
[2016-08-11 07:10] LABS: ANION GAP ND MEQ/L (2-14); CHLORIDE 89 MEQ/L (99-109); GFR ESTIMATE (CALCULATED) > 59 mL/min/; GLUCOSE 171 mg/dL (70-99); MAGNESIUM 1.7 mg/dl (1.3-2.7); POTASSIUM 4.1 MEQ/L (3.7-5.4); SAMPLE HEMOLYSIS CHECK 0; SAMPLE ICTERIC CHECK 0; SAMPLE LIPEMIA CHECK 0; SODIUM 140 MEQ/L (136-147); UREA NITROGEN (BUN) 18 mg/dL (9-23)
[2016-08-11 07:12] LABS: CARBON DIOXIDE (BICARBONATE) > 40.0 MEQ/L (20-31)
[2016-08-11 08:39] VITALS: BP 135/69
[2016-08-11 11:44] VITALS: BP 131/61
[2016-08-11 11:54] LABS: POINT-OF-CARE METER ID UU13113781
[2016-08-11 15:37] VITALS: BP 137/63
[2016-08-11 16:18] LABS: POINT-OF-CARE METER ID UU14174216
[2016-08-11 20:45] VITALS: BP 139/76
[2016-08-12 00:49] VITALS: BP 135/85
[2016-08-12 06:23] VITALS: BP 148/65
[2016-08-12 07:40] LABS: POINT-OF-CARE METER ID UU13113698
[2016-08-12 08:06] VITALS: BP 116/61
[2016-08-12 11:01] LABS: POINT-OF-CARE METER ID UU13113698
[2016-08-12 11:29] VITALS: BP 130/64
[2016-08-12] MEDS ORDERED: FAMOTIDINE20 MG PO (14:37)
[2016-08-12] MEDS ORDERED: DUONEB 2.5-0.5 M3 ML AEROSOL (14:37)
[2016-08-12] MEDS ORDERED: ALPRAZOLAM0.25 M2 PO (14:37)
[2016-08-12] MEDS ORDERED: PREDNISONE10 MG PO ×2 (14:37)
[2016-08-12] MEDS ORDERED: METFORMIN HCL1000 MG PO (14:37)
[2016-08-12] MEDS ORDERED: PREDNISONE20 MG PO (14:37)
[2016-08-12] MEDS ORDERED: CARDIZEM60 MG PO (14:37)
[2016-08-12] MEDS ORDERED: LEVEMIR100 UNIT/2 SC (14:37)
[2016-08-12 15:33] VITALS: BP 165/67
[2016-08-12 16:18] LABS: POINT-OF-CARE METER ID UU13113781
== END 2016-08-12 18:04 | DRG 189 ==
LOC: EME 16:05 → EDOF 21:27 → 4EAST 21:27
PROVIDERS: Emergency Medicine; Hospitalist; Internal Medicine
DX: J96.22 Acute and chronic respiratory failure with hypercapnia (principal); J44.1 Chronic obstructive pulmonary disease with (acute) exacerbation; F33.9 Major depressive disorder, recurrent, unspecified; E66.2 Morbid (severe) obesity with alveolar hypoventilation; I48.91 Unspecified atrial fibrillation; E11.9 Type 2 diabetes mellitus without complications; E78.5 Hyperlipidemia, unspecified; I10 Essential (primary) hypertension; F17.210 Nicotine dependence, cigarettes, uncomplicated; Z68.30 Body mass index [BMI] 30.0-30.9, adult; F41.0 Panic disorder [episodic paroxysmal anxiety]; Z86.718 Personal history of other venous thrombosis and embolism
CPT/HCPCS: 36600; 71010; 80048; 80053; 81003; 82803; 82948; 83605; 83735; 83880; 84484; 85025; 85027; 85610; 85730; 87040; 93005; 94002; 94640; 94640 76; 94660; 94667; 94668; 94760; 94799; 99202; 99281; 99285; J1100; J1815; J1940; J1956; J2405; J2920; J2930; J7512; S0028

== ENCOUNTER 2016-09-03 03:49 | Inpatient (IN) | payer OTHER ==
[~2016-09-03] VITALS: Ht 157.5 cm; Wt 96.3 kg
[~2016-09-03 03:49] MED LIST changes: +ALPRAZOLAM0.25 M2 PO; +BAYER CHEWABLE81 MG PO; +CARDIZEM60 MG PO; +FAMOTIDINE20 MG PO; +LEVEMIR100 UNIT/2 SC
[2016-09-03 04:46] LABS: HEMATOCRIT 31.8 % (36.0-46.0); MCH 28.9 PG (29.0-34.0); MCHC 29.9 G/DL (30.0-36.0); MCV 96.7 FL (83-99); MEAN PLAT.VOLUME 9.1 uM^3 (9.5-12.4); NRBC (%) 4.8 /100 WBC (0-0); RBC DIS.WIDTH-SD 67.7 % (39-53); RED BLOOD COUNT 3.29 M/uL (3.80-5.20); WHITE BLOOD COUNT 8.7 K/uL (4.1-10.2)
[2016-09-03 04:48] LABS: PLATELET COUNT 435 K/uL (156-360)
[2016-09-03 05:01] LABS: CHLORIDE 95 mEq/L (99-109); POTASSIUM 3.6 mEq/L (3.7-5.4); SODIUM 142 mEq/L (136-147)
[2016-09-03 05:02] LABS: INTER. NORMALIZED RATIO 1.1; PTT 28.9 (25-32)
[2016-09-03 05:03] LABS: GLUCOSE 78 mg/dL (70-99)
[2016-09-03 05:05] LABS: ANION GAP 12 MEQ/L (2-14)
[2016-09-03 05:06] LABS: GFR ESTIMATE (CALCULATED) > 59 mL/min/
[2016-09-03 05:07] LABS: UREA NITROGEN (BUN) 13 mg/dL (9-23)
[2016-09-03 05:24] LABS: BASE EXCESS 16.1 mEq/L (-3 to +3); BICARBONATE 43.1 mEq/L (22-26); METHEMOGLOBIN 1.1 % (0-1.5); PCO2 68 mm Hg (35-45); PO2 68 mm Hg (80-100); TOTAL RESP RATE 20 resp/min; pH 7.41 (7.35-7.45)
[2016-09-03 05:25] LABS: COMMENTS - BLOOD GASES C+; DEVICE NC; O2 FLOW 2 L/MIN; SITE LR
[2016-09-03 05:31] LABS: TROP-I INTERPRETATION NEGATIVE; TROPONIN-I 0.06 ng/mL (0.0-0.30)
[2016-09-03] MEDS ORDERED: CLARITIN-D 121 EACH PO (09:32)
[2016-09-03] MEDS ORDERED: IRON325 MG PO (09:33)
[2016-09-03] MEDS ORDERED: LASIX40 MG PO (09:34)
[2016-09-03] MEDS ORDERED: LASIX20 MG PO (09:34)
[2016-09-03] MEDS ORDERED: LEVEMIR FL100 UNIT/1 SC (09:36)
[2016-09-03] MEDS ORDERED: LEXAPRO20 MG PO (09:36)
[2016-09-03] MEDS ORDERED: LIPITOR80 MG PO (09:37)
[2016-09-03] MEDS ORDERED: NICODERM CQ1 EAC2 TD (09:37)
[2016-09-03] MEDS ORDERED: SINGULAIR10 MG PO (09:38)
[2016-09-03] MEDS ORDERED: SPIRIVA RESPIMAT4 G1 IH (09:38)
[2016-09-03] MEDS ORDERED: PREDNISONE10 MG PO (09:38)
[2016-09-03] MEDS ORDERED: FAMOTIDINE20 MG PO (09:39)
[2016-09-03] MEDS ORDERED: ELIQUIS5 MG PO (09:39)
[2016-09-03] MEDS ORDERED: GABAPENTIN100 MG PO (09:40)
[2016-09-03] MEDS ORDERED: GLIPIZIDE5 MG PO (09:40)
[2016-09-03] MEDS ORDERED: METFORMIN HCL1000 MG PO (09:41)
[2016-09-03] MEDS ORDERED: SYMBICORT60 INHALAT IH (09:42)
[2016-09-03] MEDS ORDERED: SIMETHICONE125 M1 PO (09:42)
[2016-09-03] MEDS ORDERED: BUSPAR10 MG PO (09:43)
[2016-09-03] MEDS ORDERED: XANAX0.25 MG PO (09:43)
[2016-09-03] MEDS ORDERED: CARDIZEM60 MG PO (09:44)
[2016-09-03] MEDS ORDERED: DUONEB 2.5-0.5 M3 ML AEROSOL (09:44)
[2016-09-03] MEDS ORDERED: TYLENOL REGULA325 MG PO (09:45)
[2016-09-03 13:45] LABS: POINT-OF-CARE METER ID UU14100415
[2016-09-03 14:13] LABS: POINT-OF-CARE METER ID UU14100415
[2016-09-03 14:59] LABS: INFLUENZA A VIRAL ANTIGEN NEGATIVE; INFLUENZA B VIRAL ANTIGEN NEGATIVE
[2016-09-03 16:48] VITALS: BP 131/59
[2016-09-03 18:38] LABS: METH RESISTANT S AUREUS PCR POSITIVE (NEGATIVE)
[2016-09-03 18:50] LABS: PROBE CHECK PASS
[2016-09-03 21:05] VITALS: BP 131/63
[2016-09-03 21:40] LABS: POINT-OF-CARE METER ID UU13113698
[2016-09-04] VITALS: BP 140/43
[2016-09-04 03:00] VITALS: BP 121/55
[2016-09-04 07:00] VITALS: BP 127/60
[2016-09-04 07:23] LABS: POINT-OF-CARE METER ID UU14174216
[2016-09-04 07:24] LABS: HEMATOCRIT 29.3 % (36.0-46.0); MCH 28.2 PG (29.0-34.0); MCHC 29.7 G/DL (30.0-36.0); MCV 95.1 FL (83-99); MEAN PLAT.VOLUME 9.4 uM^3 (9.5-12.4); PLATELET COUNT 432 K/uL (156-360); RBC DIS.WIDTH-CV 17.8 % (11.8-14.6); RBC DIS.WIDTH-SD 61.9 % (39-53); RED BLOOD COUNT 3.08 M/uL (3.80-5.20); WHITE BLOOD COUNT 8.1 K/uL (4.1-10.2)
[2016-09-04 07:41] LABS: ANION GAP 9 MEQ/L (2-14); CHLORIDE 96 MEQ/L (99-109); GFR ESTIMATE (CALCULATED) > 59 mL/min/; POTASSIUM 3.1 MEQ/L (3.7-5.4); SAMPLE HEMOLYSIS CHECK 0; SAMPLE ICTERIC CHECK 0; SAMPLE LIPEMIA CHECK 0; SODIUM 144 MEQ/L (136-147); UREA NITROGEN (BUN) 12 mg/dL (9-23)
[2016-09-04 07:42] LABS: GLUCOSE 189 mg/dL (70-99)
[2016-09-04 07:58] LABS: ANISOCYTOSIS 1+; BAND NEUTROPHILS 5.3 % (0-8.0); EOSINOPHIL ABS CT 0; INSTRUMENT ABS NEUTROPHIL CT 5.7 K/uL; LYMPHOCYTES 4.4 % (15.0-45.0); METAMYELOCYTES 2.7 %; NUCLEATED RBC'S 4.4; PLAT.SUFFICIENCY ADEQUATE; POIKILOCYTOSIS 1+; POLYCHROMASIA 1+; SEG.NEUTROPHILS 81.4 % (46.0-76.0)
[2016-09-04 11:13] LABS: POINT-OF-CARE METER ID UU14174216
[2016-09-04 15:20] VITALS: BP 120/53
[2016-09-04 21:17] VITALS: BP 102/58
[2016-09-04 21:53] LABS: POINT-OF-CARE METER ID UU14174216
[2016-09-04 23:43] VITALS: BP 118/70
[2016-09-05 05:13] VITALS: BP 112/53
[2016-09-05 06:57] LABS: INTERNAL CONTROL VALID? YES
[2016-09-05 07:53] LABS: POINT-OF-CARE METER ID UU13113781
[2016-09-05 08:11] LABS: HEMATOCRIT 31.3 % (36.0-46.0); MCH 28.6 PG (29.0-34.0); MCHC 28.4 G/DL (30.0-36.0); MCV 100.6 FL (83-99); NRBC (%) 1.5 /100 WBC (0-0); PLATELET COUNT 475 K/uL (156-360); RBC DIS.WIDTH-CV 18.6 % (11.8-14.6); RBC DIS.WIDTH-SD 68.1 % (39-53); RED BLOOD COUNT 3.11 M/uL (3.80-5.20); WHITE BLOOD COUNT 8.8 K/uL (4.1-10.2)
[2016-09-05 08:19] LABS: ANION GAP 6 MEQ/L (2-14); CHLORIDE 103 MEQ/L (99-109); GFR ESTIMATE (CALCULATED) > 59 mL/min/; GLUCOSE 99 mg/dL (70-99); POTASSIUM 4.1 MEQ/L (3.7-5.4); SAMPLE HEMOLYSIS CHECK 0; SAMPLE ICTERIC CHECK 0; SAMPLE LIPEMIA CHECK 0; SODIUM 148 MEQ/L (136-147); UREA NITROGEN (BUN) 10 mg/dL (9-23)
[2016-09-05 08:33] VITALS: BP 135/63
[2016-09-05 11:42] LABS: POINT-OF-CARE METER ID UU13113781
[2016-09-05 16:04] VITALS: BP 152/67
[2016-09-05 16:38] LABS: POINT-OF-CARE METER ID UU13113781
[2016-09-05 19:25] VITALS: BP 135/61
[2016-09-05 21:31] LABS: POINT-OF-CARE METER ID UU14174216
[2016-09-05 23:50] VITALS: BP 130/64
[2016-09-06 04:19] VITALS: BP 112/64
[2016-09-06 05:24] LABS: INFLUENZA A VIRAL ANTIGEN NEGATIVE; INFLUENZA B VIRAL ANTIGEN NEGATIVE
[2016-09-06 06:06] LABS: METH RESISTANT S AUREUS PCR POSITIVE (NEGATIVE)
[2016-09-06 06:08] LABS: PROBE CHECK PASS
[2016-09-06 07:34] LABS: HEMATOCRIT 31.3 % (36.0-46.0); MCH 28.9 PG (29.0-34.0); MCHC 29.4 G/DL (30.0-36.0); MCV 98.4 FL (83-99); MEAN PLAT.VOLUME 9.1 uM^3 (9.5-12.4); NRBC (%) 1.4 /100 WBC (0-0); PLATELET COUNT 478 K/uL (156-360); RBC DIS.WIDTH-CV 17.6 % (11.8-14.6); RBC DIS.WIDTH-SD 63.7 % (39-53); RED BLOOD COUNT 3.18 M/uL (3.80-5.20)
[2016-09-06 07:39] LABS: WHITE BLOOD COUNT 5.8 K/uL (4.1-10.2)
[2016-09-06 08:36] LABS: ANION GAP ND MEQ/L (2-14); CARBON DIOXIDE (BICARBONATE) > 40.0 MEQ/L (20-31); CHLORIDE 95 MEQ/L (99-109); GFR ESTIMATE (CALCULATED) > 59 mL/min/; GLUCOSE 120 mg/dL (70-99); POTASSIUM 4.2 MEQ/L (3.7-5.4); SAMPLE HEMOLYSIS CHECK 0; SAMPLE ICTERIC CHECK 0; SAMPLE LIPEMIA CHECK 0; SODIUM 145 MEQ/L (136-147); UREA NITROGEN (BUN) 10 mg/dL (9-23)
[2016-09-06 09:30] VITALS: BP 101/60
[2016-09-06 11:37] LABS: POINT-OF-CARE METER ID UU14174216
[2016-09-06 12:47] VITALS: BP 125/60
[2016-09-06 16:34] VITALS: BP 116/67
[2016-09-06 19:50] VITALS: BP 142/64
[2016-09-06 21:51] LABS: POINT-OF-CARE METER ID UU14174216
[2016-09-06 22:53] VITALS: BP 158/70
[2016-09-07 03:42] VITALS: BP 152/77
[2016-09-07 07:32] VITALS: BP 118/68
[2016-09-07 07:34] LABS: HEMATOCRIT 29.3 % (36.0-46.0); MCH 28.6 PG (29.0-34.0); MCHC 29.4 G/DL (30.0-36.0); MCV 97.3 FL (83-99); MEAN PLAT.VOLUME 9.2 uM^3 (9.5-12.4); NRBC (%) 1.4 /100 WBC (0-0); PLATELET COUNT 456 K/uL (156-360); RBC DIS.WIDTH-CV 17.7 % (11.8-14.6); RED BLOOD COUNT 3.01 M/uL (3.80-5.20)
[2016-09-07 07:43] LABS: POINT-OF-CARE METER ID UU14174216
[2016-09-07 08:15] LABS: ANION GAP ND MEQ/L (2-14); CHLORIDE 98 MEQ/L (99-109); GFR ESTIMATE (CALCULATED) > 59 mL/min/; SAMPLE HEMOLYSIS CHECK 0; SAMPLE ICTERIC CHECK 0; SAMPLE LIPEMIA CHECK 0; SODIUM 146 MEQ/L (136-147); UREA NITROGEN (BUN) 13 mg/dL (9-23)
[2016-09-07 08:19] LABS: CARBON DIOXIDE (BICARBONATE) > 40.0 MEQ/L (20-31); GLUCOSE 221 mg/dL (70-99)
[2016-09-07 11:43] LABS: POINT-OF-CARE METER ID UU14174216
[2016-09-07 12:09] VITALS: BP 124/77
[2016-09-07 16:39] VITALS: BP 130/77
[2016-09-07 16:53] LABS: POINT-OF-CARE METER ID UU14174216
[2016-09-07 19:21] VITALS: BP 139/75
[2016-09-07 21:08] LABS: POINT-OF-CARE METER ID UU14174216
[2016-09-07 23:26] VITALS: BP 156/57
[2016-09-08 04:14] VITALS: BP 148/70
[2016-09-08 05:59] LABS: BICARBONATE 51.4 mEq/L (22-26); CARBOXY HGB 1.9 % (0-5); COMMENTS - BLOOD GASES C+; DEVICE BIPAP 14/10; METHEMOGLOBIN 1.2 % (0-1.5); O2 FLOW 5 L/MIN; PCO2 74 mm Hg (35-45); PO2 66 mm Hg (80-100); SITE LB; TOTAL RESP RATE 24 resp/min; pH 7.45 (7.35-7.45)
[2016-09-08 07:44] LABS: POINT-OF-CARE METER ID UU13113698
[2016-09-08 08:12] VITALS: BP 154/71
[2016-09-08 09:49] LABS: HEMATOCRIT 31.7 % (36.0-46.0); MCH 28.6 PG (29.0-34.0); MCV 95.5 FL (83-99); MEAN PLAT.VOLUME 9.2 uM^3 (9.5-12.4); NRBC (%) 2.4 /100 WBC (0-0); PLATELET COUNT 529 K/uL (156-360); RBC DIS.WIDTH-CV 17.4 % (11.8-14.6); RBC DIS.WIDTH-SD 60.6 % (39-53); RED BLOOD COUNT 3.32 M/uL (3.80-5.20)
[2016-09-08 09:51] LABS: WHITE BLOOD COUNT 11.1 K/uL (4.1-10.2)
[2016-09-08 10:03] LABS: ANION GAP ND MEQ/L (2-14); CHLORIDE 96 MEQ/L (99-109); GFR ESTIMATE (CALCULATED) > 59 mL/min/; GLUCOSE 189 mg/dL (70-99); POTASSIUM 3.4 MEQ/L (3.7-5.4); SAMPLE HEMOLYSIS CHECK 0; SAMPLE ICTERIC CHECK 0; SAMPLE LIPEMIA CHECK 0; SODIUM 146 MEQ/L (136-147); UREA NITROGEN (BUN) 13 mg/dL (9-23)
[2016-09-08 10:04] LABS: CARBON DIOXIDE (BICARBONATE) > 40.0 MEQ/L (20-31)
[2016-09-08 11:38] LABS: POINT-OF-CARE METER ID UU13113698
[2016-09-08 12:00] VITALS: BP 156/76
[2016-09-08 16:00] VITALS: BP 136/64
[2016-09-08 16:48] LABS: POINT-OF-CARE METER ID UU13113698
[2016-09-08 20:00] VITALS: BP 138/60
[2016-09-08 20:03] LABS: POINT-OF-CARE METER ID UU13113698
[2016-09-08 22:46] VITALS: BP 151/69
[2016-09-09 03:42] VITALS: BP 142/60
[2016-09-09 06:42] LABS: HEMATOCRIT 31.3 % (36.0-46.0); MCHC 29.4 G/DL (30.0-36.0); MCV 95.4 FL (83-99); NRBC (%) 2.6 /100 WBC (0-0); PLATELET COUNT 483 K/uL (156-360); RBC DIS.WIDTH-CV 17.7 % (11.8-14.6); RBC DIS.WIDTH-SD 62.8 % (39-53); RED BLOOD COUNT 3.28 M/uL (3.80-5.20); WHITE BLOOD COUNT 8.1 K/uL (4.1-10.2)
[2016-09-09 07:09] LABS: ANION GAP ND MEQ/L (2-14); CHLORIDE 92 MEQ/L (99-109); GFR ESTIMATE (CALCULATED) > 59 mL/min/; SAMPLE HEMOLYSIS CHECK 0; SAMPLE ICTERIC CHECK 0; SAMPLE LIPEMIA CHECK 0; SODIUM 149 MEQ/L (136-147); UREA NITROGEN (BUN) 11 mg/dL (9-23)
[2016-09-09 07:11] LABS: CARBON DIOXIDE (BICARBONATE) > 40.0 MEQ/L (20-31); GLUCOSE 80 mg/dL (70-99)
[2016-09-09 07:29] LABS: Estimated Average Glucose 169 mg/dL (70-123); HEMOGLOBIN A1c (GLYCOHEMOGLOB) 7.5 % HGB (Below 5.7)
[2016-09-09 08:03] LABS: POINT-OF-CARE METER ID UU14174216; POINT-OF-CARE USER ID ENVKC36
[2016-09-09 08:28] VITALS: BP 129/72
[2016-09-09 11:30] VITALS: BP 145/85
[2016-09-09 16:03] VITALS: BP 141/84
[2016-09-09 20:27] VITALS: BP 160/73
[2016-09-09 23:12] VITALS: BP 146/75
[2016-09-10 04:07] VITALS: BP 151/67
[2016-09-10 07:11] LABS: MCH 28.5 PG (29.0-34.0); MCHC 29.7 G/DL (30.0-36.0); MCV 95.9 FL (83-99); MEAN PLAT.VOLUME 9.2 uM^3 (9.5-12.4); NRBC (%) 1.5 /100 WBC (0-0); PLATELET COUNT 499 K/uL (156-360); RBC DIS.WIDTH-CV 17.8 % (11.8-14.6); RBC DIS.WIDTH-SD 62.5 % (39-53); RED BLOOD COUNT 3.44 M/uL (3.80-5.20); WHITE BLOOD COUNT 8.2 K/uL (4.1-10.2)
[2016-09-10 07:44] VITALS: BP 124/58
[2016-09-10 07:57] LABS: ANION GAP ND MEQ/L (2-14); CHLORIDE 94 MEQ/L (99-109); GFR ESTIMATE (CALCULATED) > 59 mL/min/; SAMPLE HEMOLYSIS CHECK 0; SAMPLE ICTERIC CHECK 0; SAMPLE LIPEMIA CHECK 0; SODIUM 146 MEQ/L (136-147); UREA NITROGEN (BUN) 14 mg/dL (9-23)
[2016-09-10 07:58] LABS: CARBON DIOXIDE (BICARBONATE) > 40.0 MEQ/L (20-31); GLUCOSE 120 mg/dL (70-99); POTASSIUM 3.8 MEQ/L (3.7-5.4)
[2016-09-10 11:38] VITALS: BP 156/75
[2016-09-10 16:11] VITALS: BP 149/65
[2016-09-10 23:32] VITALS: BP 157/72
[2016-09-11 03:55] VITALS: BP 153/76
[2016-09-11 07:25] LABS: ANION GAP ND MEQ/L (2-14); CHLORIDE 95 MEQ/L (99-109); GFR ESTIMATE (CALCULATED) > 59 mL/min/; GLUCOSE 115 mg/dL (70-99); POTASSIUM 3.4 MEQ/L (3.7-5.4); SAMPLE HEMOLYSIS CHECK 0; SAMPLE ICTERIC CHECK 0; SAMPLE LIPEMIA CHECK 0; SODIUM 146 MEQ/L (136-147); UREA NITROGEN (BUN) 13 mg/dL (9-23)
[2016-09-11 07:27] LABS: CARBON DIOXIDE (BICARBONATE) > 40.0 MEQ/L (20-31)
[2016-09-11 07:30] VITALS: BP 145/82
[2016-09-11 07:55] LABS: HEMATOCRIT 32.8 % (36.0-46.0); MCH 28.7 PG (29.0-34.0); MCHC 30.5 G/DL (30.0-36.0); MCV 94.3 FL (83-99); RBC DIS.WIDTH-CV 17.8 % (11.8-14.6); RBC DIS.WIDTH-SD 62.3 % (39-53); RED BLOOD COUNT 3.48 M/uL (3.80-5.20); WHITE BLOOD COUNT 8.9 K/uL (4.1-10.2)
[2016-09-11 08:07] LABS: MEAN PLAT.VOLUME 9.2 uM^3 (9.5-12.4); PLAT.SUFFICIENCY INCREASED; PLATELET COUNT 472 K/uL (156-360)
[2016-09-11] MEDS ORDERED: LINEZOLID600 MG PO (11:31)
[2016-09-11] MEDS ORDERED: CIPRO500 MG PO (11:34)
[2016-09-11] MEDS ORDERED: MUCINEX600 MG PO (11:35)
[2016-09-11] MEDS ORDERED: PREDNISONE20 MG PO (11:36)
[2016-09-11] MEDS ORDERED: PREDNISONE10 MG PO (11:37)
[2016-09-11 11:59] LABS: POINT-OF-CARE METER ID UU14162508
[2016-09-11 12:15] VITALS: BP 146/76
== END 2016-09-11 13:53 | DRG 871 ==
LOC: EME 03:49 → 4EAST 07:29 → EDOF 07:29 → 4EAST 15:15 → 2EAST 09-09 11:16
PROVIDERS: Emergency Medicine; Hospitalist; Internal Medicine
PROC: 5A09357 Assistance with Respiratory Ventilation, Less than 24 Consecutive Hours, Continuous Positive Airway Pressure (ICD-10-PCS; principal; 2016-09-04)
DX: A41.9 Sepsis, unspecified organism (principal); J44.0 Chronic obstructive pulmonary disease with (acute) lower respiratory infection; J15.212 Pneumonia due to Methicillin resistant Staphylococcus aureus; J96.21 Acute and chronic respiratory failure with hypoxia; J96.22 Acute and chronic respiratory failure with hypercapnia; J44.1 Chronic obstructive pulmonary disease with (acute) exacerbation; E11.65 Type 2 diabetes mellitus with hyperglycemia; F32.9 Major depressive disorder, single episode, unspecified; E78.5 Hyperlipidemia, unspecified; E66.9 Obesity, unspecified; G89.29 Other chronic pain; M54.5 Low back pain; F41.9 Anxiety disorder, unspecified; I10 Essential (primary) hypertension; D64.9 Anemia, unspecified; I48.0 Paroxysmal atrial fibrillation; E87.6 Hypokalemia; F17.200 Nicotine dependence, unspecified, uncomplicated; G47.33 Obstructive sleep apnea (adult) (pediatric); Z99.81 Dependence on supplemental oxygen; Z86.73 Personal history of transient ischemic attack (TIA), and cerebral infarction without residual deficits; Z86.718 Personal history of other venous thrombosis and embolism; Z79.4 Long term (current) use of insulin; Z68.38 Body mass index [BMI] 38.0-38.9, adult
CPT/HCPCS: 36600; 71010; 71020; 80048; 80202; 82803; 82948; 83036; 83605; 84484; 85025; 85027; 85610; 85730; 87040; 87070; 87205; 87449; 87502; 87641; 93005; 94640; 94640 76; 94660; 94667; 94668; 94799; 99202; 99281; 99285; J0456; J1100; J1815; J1940; J2543; J2920; J2930; J3370; J7030; J7050; J7512; J7644

== ENCOUNTER 2016-09-24 09:45 | Inpatient (IN) | payer OTHER ==
[~2016-09-24] VITALS: Ht 157.5 cm; Wt 70.6 kg
[~2016-09-24 09:45] MED LIST changes: +CIPRO500 MG PO; +FAMOTIDINE20 MG GT; +GABAPENTIN100 MG PO; +GLIPIZIDE5 MG GT; +IRON325 MG PO; +LASIX20 MG PO; +LASIX40 MG PO; +LEVEMIR FL100 UNIT/1 SC; +LINEZOLID600 MG PO; +METFORMIN HCL1000 MG GT; +MUCINEX600 MG PO; +NICODERM CQ1 EAC2 TD; +SIMETHICONE125 M1 PO; +TYLENOL REGULA325 MG PO; +XANAX0.25 MG PO
[2016-09-24 10:30] LABS: EOSINOPHIL (%) 0.1 % (0-5); HEMATOCRIT 34.8 % (36.0-46.0); IMMATURE GRANULOCYTE (%) 2.1 % (0.0-0.7); IMMATURE GRANULOCYTE COUNT 0.3 K/uL; INSTRUMENT ABS NEUTROPHIL CT 12.1 K/uL; LYMPHOCYTE COUNT 0.7 K/uL (1.0-2.8); MCH 28.5 PG (29.0-34.0); MCHC 30.7 G/DL (30.0-36.0); MCV 92.8 FL (83-99); MONOCYTE (%) 4.9 % (3-12); MONOCYTE COUNT 0.7 K/uL (0-0.8); NEUTROPHIL COUNT 12.1 K/uL (1.8-6.4); NRBC (%) 0.7 /100 WBC (0-0); RBC DIS.WIDTH-SD 61.5 % (39-53); RED BLOOD COUNT 3.75 M/uL (3.80-5.20)
[2016-09-24 10:31] LABS: CHLORIDE 86 mEq/L (99-109); POTASSIUM 3.1 mEq/L (3.7-5.4); SODIUM 139 mEq/L (136-147)
[2016-09-24 10:33] LABS: GLUCOSE 101 mg/dL (70-99)
[2016-09-24 10:35] LABS: ANION GAP 13 MEQ/L (2-14); INTER. NORMALIZED RATIO 1.1; PROTHROMBIN TIME 11.3 (9.2-11.2); PTT 28.7 (25-32)
[2016-09-24 10:37] LABS: GFR ESTIMATE (CALCULATED) > 59 mL/min/
[2016-09-24 10:38] LABS: UREA NITROGEN (BUN) 15 mg/dL (9-23)
[2016-09-24 10:45] LABS: TROP-I INTERPRETATION NEGATIVE; TROPONIN-I 0.05 ng/mL (0.0-0.30)
[2016-09-24 10:51] LABS: WHITE BLOOD COUNT 13.8 K/uL (4.1-10.2)
[2016-09-24 11:04] LABS: ANISOCYTOSIS 1+; BAND NEUTROPHILS 1.7 % (0-8.0); EOSINOPHIL ABS CT 0; LYMPHOCYTES 4.4 % (15.0-45.0); MACROCYTES 1+; MEAN PLAT.VOLUME 9.1 uM^3 (9.5-12.4); METAMYELOCYTES 1.7 %; NUCLEATED RBC'S 0.9; PLAT.SUFFICIENCY ADEQUATE; SEG.NEUTROPHILS 85.2 % (46.0-76.0)
[2016-09-24 11:09] LABS: PLATELET COUNT 256 K/uL (156-360)
[2016-09-24] MEDS ORDERED: LO-DOSE ASPIRIN81 M1 PO (12:17)
[2016-09-24] MEDS ORDERED: LASIX40 MG PO (12:19)
[2016-09-24] MEDS ORDERED: NICODERM CQ1 EAC1 TD (12:21)
[2016-09-24] MEDS ORDERED: PREDNISONE10 MG PO (12:23)
[2016-09-24] MEDS ORDERED: THEO-24300 MG PO (12:25)
[2016-09-24] MEDS ORDERED: THEO-24200 MG PO (12:25)
[2016-09-24] MEDS ORDERED: ZOFRAN4 MG PO (12:26)
[2016-09-24] MEDS ORDERED: FLORASTOR250 MG PO (12:28)
[2016-09-24] MEDS ORDERED: MUCINEX600 MG PO (12:31)
[2016-09-24] MEDS ORDERED: XANAX0.25 MG PO (12:34)
[2016-09-24] MEDS ORDERED: MILK OF MAGN PO (12:37)
[2016-09-24] MEDS ORDERED: FLEET ENEMA-AD118 ML PR (12:38)
[2016-09-24] MEDS ORDERED: DUONEB 2.5-0.5 M3 ML AEROSOL (12:40)
[2016-09-24 13:35] LABS: BASE EXCESS 22.9 mEq/L (-3 to +3); BICARBONATE 50.2 mEq/L (22-26); CARBOXY HGB 2.1 % (0-5); METHEMOGLOBIN 1.2 % (0-1.5); PCO2 69 mm Hg (35-45); PO2 71 mm Hg (80-100); pH 7.47 (7.35-7.45)
[2016-09-24 13:36] LABS: COMMENTS - BLOOD GASES A+C+; DEVICE NC; O2 FLOW 4 L/MIN; SITE LR; TOTAL RESP RATE 24 resp/min
[2016-09-24 20:30] VITALS: BP 149/64
[2016-09-24 22:56] LABS: METH RESISTANT S AUREUS PCR POSITIVE (NEGATIVE)
[2016-09-24 23:06] LABS: PROBE CHECK PASS
[2016-09-24 23:55] VITALS: BP 135/61
[2016-09-25 04:00] VITALS: BP 134/93
[2016-09-25 09:00] VITALS: BP 157/69
[2016-09-25 10:41] LABS: HEMATOCRIT 30.8 % (36.0-46.0); MCH 28.5 PG (29.0-34.0); MCHC 30.2 G/DL (30.0-36.0); MCV 94.5 FL (83-99); MEAN PLAT.VOLUME 9.5 uM^3 (9.5-12.4); PLATELET COUNT 246 K/uL (156-360); RBC DIS.WIDTH-SD 62.6 % (39-53); RED BLOOD COUNT 3.26 M/uL (3.80-5.20); WHITE BLOOD COUNT 14.6 K/uL (4.1-10.2)
[2016-09-25 10:41] LABS: ANION GAP ND MEQ/L (2-14); CHLORIDE 92 MEQ/L (99-109); GFR ESTIMATE (CALCULATED) > 59 mL/min/; SAMPLE HEMOLYSIS CHECK 0; SAMPLE ICTERIC CHECK 0; SAMPLE LIPEMIA CHECK 0; SODIUM 143 MEQ/L (136-147); UREA NITROGEN (BUN) 15 mg/dL (9-23)
[2016-09-25 10:42] LABS: CARBON DIOXIDE (BICARBONATE) > 40.0 MEQ/L (20-31); GLUCOSE 283 mg/dL (70-99)
[2016-09-25 11:33] LABS: MAGNESIUM 1.3 mg/dl (1.3-2.7)
[2016-09-25 11:40] VITALS: BP 140/70
[2016-09-25 15:30] VITALS: BP 158/71
[2016-09-25 15:40] LABS: BASE EXCESS 21.2 mEq/L (-3 to +3); BICARBONATE 50.3 mEq/L (22-26); CARBOXY HGB 2.2 % (0-5); METHEMOGLOBIN 1.8 % (0-1.5); PCO2 87 mm Hg (35-45); PO2 54 mm Hg (80-100); pH 7.37 (7.35-7.45)
[2016-09-25 15:41] LABS: COMMENTS - BLOOD GASES A+C+; DEVICE BREATHING TX; O2 FLOW 8 L/MIN; SITE RRA; TOTAL RESP RATE 20 resp/min
[2016-09-25 19:24] VITALS: BP 113/54
[2016-09-26 00:25] VITALS: BP 123/60
[2016-09-26 04:06] VITALS: BP 129/44
[2016-09-26 05:00] LABS: HEMATOCRIT 30.1 % (36.0-46.0); MCH 28.4 PG (29.0-34.0); MCHC 30.2 G/DL (30.0-36.0); MCV 94.1 FL (83-99); NRBC (%) 0.2 /100 WBC (0-0); PLATELET COUNT 239 K/uL (156-360); RBC DIS.WIDTH-CV 17.9 % (11.8-14.6); RBC DIS.WIDTH-SD 62.2 % (39-53); WHITE BLOOD COUNT 12.9 K/uL (4.1-10.2)
[2016-09-26 05:28] LABS: POTASSIUM 3.6 mEq/L (3.7-5.4); SODIUM 144 mEq/L (136-147)
[2016-09-26 05:29] LABS: CHLORIDE 97 mEq/L (99-109); MAGNESIUM 2.5 mg/dL (1.3-2.7)
[2016-09-26 05:30] LABS: GLUCOSE 214 mg/dL (70-99)
[2016-09-26 05:32] LABS: ANION GAP 9 MEQ/L (2-14)
[2016-09-26 05:34] LABS: GFR ESTIMATE (CALCULATED) > 59 mL/min/
[2016-09-26 05:35] LABS: UREA NITROGEN (BUN) 14 mg/dL (9-23)
[2016-09-26 08:00] LABS: POINT-OF-CARE USER ID ENVKC36
[2016-09-26 09:00] VITALS: BP 128/60
[2016-09-26 12:00] VITALS: BP 105/64
[2016-09-26 12:06] LABS: POINT-OF-CARE USER ID ENVKC36
[2016-09-26 17:42] VITALS: BP 156/89
[2016-09-26 20:18] VITALS: BP 142/87
[2016-09-26 21:04] LABS: POINT-OF-CARE METER ID UU14149398
[2016-09-27] VITALS (7 sets, daily range): BP systolic 105–160; BP diastolic 51–85
[2016-09-27 07:14] LABS: MCV 96.6 FL (83-99); MEAN PLAT.VOLUME 9.2 uM^3 (9.5-12.4); NRBC (%) 0.3 /100 WBC (0-0); PLATELET COUNT 244 K/uL (156-360); RBC DIS.WIDTH-CV 18.1 % (11.8-14.6); RBC DIS.WIDTH-SD 64.6 % (39-53); RED BLOOD COUNT 3.21 M/uL (3.80-5.20); WHITE BLOOD COUNT 10.2 K/uL (4.1-10.2)
[2016-09-27 07:38] LABS: ANION GAP ND MEQ/L (2-14); CARBON DIOXIDE (BICARBONATE) > 40.0 MEQ/L (20-31); CHLORIDE 98 MEQ/L (99-109); GFR ESTIMATE (CALCULATED) > 59 mL/min/; GLUCOSE 245 mg/dL (70-99); POTASSIUM 3.3 MEQ/L (3.7-5.4); SAMPLE HEMOLYSIS CHECK 0; SAMPLE ICTERIC CHECK 0; SAMPLE LIPEMIA CHECK 0; SODIUM 146 MEQ/L (136-147); UREA NITROGEN (BUN) 17 mg/dL (9-23)
[2016-09-27 08:24] LABS: POINT-OF-CARE METER ID UU14149398
[2016-09-27 08:31] LABS: BASE EXCESS 22.2 mEq/L (-3 to +3); BICARBONATE 50.8 mEq/L (22-26); COMMENTS - BLOOD GASES A+C+; DEVICE BIPAP; METHEMOGLOBIN 1.7 % (0-1.5); PCO2 84 mm Hg (35-45); PO2 68 mm Hg (80-100); SITE RRA; TOTAL RESP RATE 25 resp/min; pH 7.39 (7.35-7.45)
[2016-09-27 11:54] LABS: POINT-OF-CARE METER ID UU14149398
[2016-09-27 17:30] LABS: POINT-OF-CARE METER ID UU14149398
[2016-09-27 21:49] LABS: POINT-OF-CARE METER ID UU14149398
[2016-09-28] VITALS (7 sets, daily range): BP systolic 117–162; BP diastolic 61–98
[2016-09-28 05:47] LABS: HEMATOCRIT 29.1 % (36.0-46.0); MCH 28.4 PG (29.0-34.0); MCHC 29.2 G/DL (30.0-36.0); MCV 97.3 FL (83-99); MEAN PLAT.VOLUME 9.1 uM^3 (9.5-12.4); NRBC (%) 0.3 /100 WBC (0-0); PLATELET COUNT 267 K/uL (156-360); RBC DIS.WIDTH-SD 64.3 % (39-53); RED BLOOD COUNT 2.99 M/uL (3.80-5.20); WHITE BLOOD COUNT 9.1 K/uL (4.1-10.2)
[2016-09-28 05:58] LABS: TROP-I INTERPRETATION NEGATIVE; TROPONIN-I 0.03 ng/mL (0.0-0.30)
[2016-09-28 06:26] LABS: ANION GAP 7 MEQ/L (2-14); CHLORIDE 99 MEQ/L (99-109); GFR ESTIMATE (CALCULATED) > 59 mL/min/; GLUCOSE 249 mg/dL (70-99); MAGNESIUM 1.7 mg/dl (1.3-2.7); POTASSIUM 3.7 MEQ/L (3.7-5.4); SAMPLE HEMOLYSIS CHECK 0; SAMPLE ICTERIC CHECK 0; SAMPLE LIPEMIA CHECK 0; SODIUM 146 MEQ/L (136-147); UREA NITROGEN (BUN) 14 mg/dL (9-23)
[2016-09-28 08:17] LABS: POINT-OF-CARE METER ID UU14149398
[2016-09-28 11:27] LABS: POINT-OF-CARE METER ID UU14149398
[2016-09-28 16:02] LABS: POINT-OF-CARE METER ID UU13113807
[2016-09-28 21:23] LABS: POINT-OF-CARE METER ID UU13113807
[2016-09-29 04:04] VITALS: BP 137/84
[2016-09-29 06:35] LABS: ANION GAP ND MEQ/L (2-14); CARBON DIOXIDE (BICARBONATE) > 40.0 MEQ/L (20-31); CHLORIDE 92 MEQ/L (99-109); GFR ESTIMATE (CALCULATED) > 59 mL/min/; GLUCOSE 153 mg/dL (70-99); MAGNESIUM 1.9 mg/dl (1.3-2.7); POTASSIUM 3.7 MEQ/L (3.7-5.4); SAMPLE HEMOLYSIS CHECK 0; SAMPLE ICTERIC CHECK 0; SAMPLE LIPEMIA CHECK 0; SODIUM 146 MEQ/L (136-147); UREA NITROGEN (BUN) 17 mg/dL (9-23)
[2016-09-29 08:02] LABS: HEMATOCRIT 33.3 % (36.0-46.0); MCH 28.5 PG (29.0-34.0); MCHC 29.4 G/DL (30.0-36.0); MCV 96.8 FL (83-99); NRBC (%) 0.5 /100 WBC (0-0); RBC DIS.WIDTH-CV 17.5 % (11.8-14.6); RBC DIS.WIDTH-SD 62.4 % (39-53); RED BLOOD COUNT 3.44 M/uL (3.80-5.20); WHITE BLOOD COUNT 7.6 K/uL (4.1-10.2)
[2016-09-29 08:04] VITALS: BP 140/79
[2016-09-29 09:32] LABS: MEAN PLAT.VOLUME 9.2 uM^3 (9.5-12.4); PLAT.SUFFICIENCY ADEQUATE; PLATELET COUNT 313 K/uL (156-360)
[2016-09-29 13:03] VITALS: BP 137/81
[2016-09-29 13:05] LABS: POINT-OF-CARE METER ID UU13113807
[2016-09-29 16:50] VITALS: BP 139/80
[2016-09-29 18:02] LABS: POINT-OF-CARE METER ID UU13113807
[2016-09-29 19:20] VITALS: BP 137/91
[2016-09-29 21:23] LABS: POINT-OF-CARE METER ID UU13113807
[2016-09-29 23:10] VITALS: BP 131/72
[2016-09-30] VITALS (16 sets, daily range): BP systolic 73–155; BP diastolic 45–73
[2016-09-30 03:53] LABS: POINT-OF-CARE METER ID UU13113807; POINT-OF-CARE USER ID STWHLR41
[2016-09-30 07:03] LABS: POINT-OF-CARE METER ID UU13113807
[2016-09-30 07:30] LABS: CARBOXY HGB 2.2 % (0-5); METHEMOGLOBIN 1.5 % (0-1.5); PO2 76 mm Hg (80-100)
[2016-09-30 07:31] LABS: COMMENTS - BLOOD GASES A+C+; DEVICE 980; FI02 100 %; MECHANICAL RATE 12 resp/min; MODE AC; PCO2 > 129 mm Hg (35-45); PEEP 5 CM/H20; SITE RR; TIDAL VOLUME 400 ML; TOTAL RESP RATE 12 resp/min; pH 7.26 (7.35-7.45)
[2016-09-30 07:49] LABS: HEMATOCRIT 34.6 % (36.0-46.0); MCH 28.6 PG (29.0-34.0); MCHC 28.3 G/DL (30.0-36.0); NRBC (%) 1.5 /100 WBC (0-0); PLATELET COUNT 319 K/uL (156-360); RBC DIS.WIDTH-CV 17.5 % (11.8-14.6); RBC DIS.WIDTH-SD 65.1 % (39-53); RED BLOOD COUNT 3.43 M/uL (3.80-5.20); WHITE BLOOD COUNT 7.9 K/uL (4.1-10.2)
[2016-09-30 07:52] LABS: TROP-I INTERPRETATION NEGATIVE; TROPONIN-I 0.07 ng/mL (0.0-0.30)
[2016-09-30 08:18] LABS: ANION GAP ND MEQ/L (2-14); CHLORIDE 88 MEQ/L (99-109); GFR ESTIMATE (CALCULATED) > 59 mL/min/; POTASSIUM 3.8 MEQ/L (3.7-5.4); SAMPLE HEMOLYSIS CHECK 0; SAMPLE ICTERIC CHECK 0; SAMPLE LIPEMIA CHECK 0; SODIUM 151 MEQ/L (136-147); UREA NITROGEN (BUN) 24 mg/dL (9-23)
[2016-09-30 08:19] LABS: CARBON DIOXIDE (BICARBONATE) > 40.0 MEQ/L (20-31); GLUCOSE 242 mg/dL (70-99)
[2016-09-30 08:26] LABS: MCV 100.9 FL (83-99)
[2016-09-30 09:07] LABS: POINT-OF-CARE METER ID UU14162636
[2016-09-30 09:13] LABS: METH RESISTANT S AUREUS PCR POSITIVE (NEGATIVE)
[2016-09-30 09:15] LABS: PROBE CHECK PASS
[2016-09-30 09:36] LABS: ADD MIUA? YES; BILIRUBIN NEGATIVE; BLOOD NEGATIVE; COLOR YELLOW ((YELLOW)); GLUCOSE (STRIP) NEGATIVE; KETONES NEGATIVE; LEUKOCYTES NEGATIVE; NITRITE NEGATIVE; PROTEIN (STRIP) 100; SPECIFIC GRAVITY 1.021 (1.000-1.030); UROBILINOGEN 0.2 MG/DL (0.2-1.0)
[2016-09-30 10:38] LABS: BACTERIA 1+ /HPF; EPITHELIAL CELLS RARE /HPF; GRANULAR CASTS 0-5 /LPF; MUCUS TRACE /LPF; RED BLOOD CELLS 0-5 /HPF (0-5); WHITE BLOOD CELLS CLUMP RARE /HPF (0-5)
[2016-09-30 13:44] LABS: POINT-OF-CARE METER ID UU13113731
[2016-09-30 22:16] LABS: POINT-OF-CARE METER ID UU14162636; POINT-OF-CARE USER ID RADDRS44
[2016-10-01] VITALS (22 sets, daily range): BP systolic 83–155; BP diastolic 38–104
[2016-10-01 05:26] LABS: POINT-OF-CARE METER ID UU13113731; POINT-OF-CARE USER ID RADDRS44
[2016-10-01 05:58] LABS: HEMATOCRIT 24.7 % (36.0-46.0); MCH 28.3 PG (29.0-34.0); MCHC 29.6 G/DL (30.0-36.0); MCV 95.7 FL (83-99); NRBC (%) 0.6 /100 WBC (0-0); RBC DIS.WIDTH-CV 18.4 % (11.8-14.6); RBC DIS.WIDTH-SD 63.7 % (39-53); RED BLOOD COUNT 2.58 M/uL (3.80-5.20)
[2016-10-01 05:59] LABS: BASE EXCESS 30.1 mEq/L (-3 to +3); BICARBONATE 54.5 mEq/L (22-26); COMMENTS - BLOOD GASES C+; DEVICE 980 VENT; FI02 50 %; MECHANICAL RATE 28 resp/min; METHEMOGLOBIN 1.2 % (0-1.5); MODE AC; PCO2 53 mm Hg (35-45); PO2 56 mm Hg (80-100); SITE ALINE; TIDAL VOLUME 400 ML; TOTAL RESP RATE 28 resp/min; pH 7.62 (7.35-7.45)
[2016-10-01 06:00] LABS: PEEP 8 CM/H20
[2016-10-01 06:20] LABS: ALKALINE PHOSPHATASE 50 IU/L (3-129); ANION GAP ND MEQ/L (2-14); GFR ESTIMATE (CALCULATED) > 59 mL/min/; GLUCOSE 150 mg/dL (70-99); SAMPLE HEMOLYSIS CHECK 0; SAMPLE ICTERIC CHECK 0; SAMPLE LIPEMIA CHECK 0; SODIUM 150 MEQ/L (136-147); TOTAL BILIRUBIN 0.6 MG/DL (0.0-1.0); UREA NITROGEN (BUN) 26 mg/dL (9-23)
[2016-10-01 06:21] LABS: CARBON DIOXIDE (BICARBONATE) > 40.0 MEQ/L (20-31); CHLORIDE 97 MEQ/L (99-109); MAGNESIUM 1.6 mg/dl (1.3-2.7); POTASSIUM 2.7 MEQ/L (3.7-5.4)
[2016-10-01 07:14] LABS: MEAN PLAT.VOLUME 9.6 uM^3 (9.5-12.4)
[2016-10-01 07:17] LABS: PLATELET COUNT 219 K/uL (156-360)
[2016-10-01 07:41] LABS: BASE EXCESS 25.6 mEq/L (-3 to +3); BICARBONATE 50.7 mEq/L (22-26); CARBOXY HGB 1.7 % (0-5); METHEMOGLOBIN 1.3 % (0-1.5); pH 7.55 (7.35-7.45)
[2016-10-01 07:42] LABS: DEVICE VENT; FI02 50 %; MECHANICAL RATE 20 resp/min; MODE AC; PCO2 58 mm Hg (35-45); PEEP 8 CM/H20; PO2 82 mm Hg (80-100); SITE ALINE; TIDAL VOLUME 400 ML; TOTAL RESP RATE 20 resp/min
[2016-10-01 08:00] LABS: EOSINOPHIL (%) 0 % (0-5); IMMATURE GRANULOCYTE COUNT 0.1 K/uL; INSTRUMENT ABS NEUTROPHIL CT 4.6 K/uL; LYMPHOCYTE COUNT 0.3 K/uL (1.0-2.8); MONOCYTE (%) 2.8 % (3-12); MONOCYTE COUNT 0.1 K/uL (0-0.8); NEUTROPHIL (%) 91.2 % (45-76); NEUTROPHIL COUNT 4.6 K/uL (1.8-6.4)
[2016-10-01 09:24] LABS: POINT-OF-CARE METER ID UU13113731
[2016-10-01 12:50] LABS: POINT-OF-CARE METER ID UU13113731
[2016-10-01 18:28] LABS: POINT-OF-CARE METER ID UU13113803
[2016-10-01 22:45] LABS: POINT-OF-CARE METER ID UU13113803; POINT-OF-CARE USER ID RADDRS44
[2016-10-02] VITALS (15 sets, daily range): BP systolic 89–168; BP diastolic 53–105
[2016-10-02 04:44] LABS: HEMATOCRIT 28.4 % (36.0-46.0); MCH 28.6 PG (29.0-34.0); MCHC 29.9 G/DL (30.0-36.0); MCV 95.6 FL (83-99); NRBC (%) 0.6 /100 WBC (0-0); PLATELET COUNT 243 K/uL (156-360); RBC DIS.WIDTH-SD 67.7 % (39-53); RED BLOOD COUNT 2.97 M/uL (3.80-5.20)
[2016-10-02 04:48] LABS: INTER. NORMALIZED RATIO 1.1; PROTHROMBIN TIME 11.3 (9.2-11.2); PTT 40.8 (25-32)
[2016-10-02 04:50] LABS: WHITE BLOOD COUNT 8.7 K/uL (4.1-10.2)
[2016-10-02 05:00] LABS: CHLORIDE 102 mEq/L (99-109); SODIUM 152 mEq/L (136-147)
[2016-10-02 05:02] LABS: GLUCOSE 119 mg/dL (70-99)
[2016-10-02 05:04] LABS: ANION GAP 10 MEQ/L (2-14)
[2016-10-02 05:06] LABS: GFR ESTIMATE (CALCULATED) > 59 mL/min/
[2016-10-02 05:07] LABS: UREA NITROGEN (BUN) 24 mg/dL (9-23)
[2016-10-02 05:10] LABS: POTASSIUM 3.3 mEq/L (3.7-5.4)
[2016-10-02 05:46] LABS: ABS NEUTROPHIL COUNT 8.3; ANISOCYTOSIS 1+; BAND NEUTROPHILS 4.4 % (0-8.0); EOSINOPHIL ABS CT 0; INSTRUMENT ABS NEUTROPHIL CT 8.3 K/uL; LYMPHOCYTES 4.4 % (15.0-45.0); MACROCYTES 1+; PLAT.SUFFICIENCY ADEQUATE; SEG.NEUTROPHILS 91.2 % (46.0-76.0)
[2016-10-02 09:30] LABS: POINT-OF-CARE METER ID UU14174217
[2016-10-02 12:24] LABS: POINT-OF-CARE METER ID UU14174217
[2016-10-02 18:28] LABS: POINT-OF-CARE METER ID UU13113731
[2016-10-03] VITALS (23 sets, daily range): BP systolic 81–142; BP diastolic 44–78
[2016-10-03 01:49] LABS: POINT-OF-CARE METER ID UU14174217
[2016-10-03 06:21] LABS: POINT-OF-CARE METER ID UU14174217
[2016-10-03 09:33] LABS: ANION GAP ND MEQ/L (2-14); CHLORIDE 103 MEQ/L (99-109); GFR ESTIMATE (CALCULATED) > 59 mL/min/; GLUCOSE 129 mg/dL (70-99); SAMPLE HEMOLYSIS CHECK 0; SAMPLE ICTERIC CHECK 0; SAMPLE LIPEMIA CHECK 0; SODIUM 152 MEQ/L (136-147); UREA NITROGEN (BUN) 21 mg/dL (9-23)
[2016-10-03 09:41] LABS: POTASSIUM 4.2 MEQ/L (3.7-5.4)
[2016-10-03 09:43] LABS: CARBON DIOXIDE (BICARBONATE) > 40.0 MEQ/L (20-31)
[2016-10-03 11:50] LABS: POINT-OF-CARE METER ID UU13113731
[2016-10-03 18:04] LABS: POINT-OF-CARE METER ID UU13113731
[2016-10-04] VITALS (17 sets, daily range): BP systolic 89–146; BP diastolic 45–82
[2016-10-04 00:04] LABS: POINT-OF-CARE METER ID UU13113731
[2016-10-04 06:48] LABS: POINT-OF-CARE METER ID UU13113731
[2016-10-04 08:17] LABS: CHLORIDE 102 mEq/L (99-109); POTASSIUM 4.1 mEq/L (3.7-5.4); SODIUM 149 mEq/L (136-147)
[2016-10-04 08:19] LABS: GLUCOSE 159 mg/dL (70-99)
[2016-10-04 08:20] LABS: ANION GAP 5 MEQ/L (2-14)
[2016-10-04 08:23] LABS: GFR ESTIMATE (CALCULATED) > 59 mL/min/
[2016-10-04 08:24] LABS: UREA NITROGEN (BUN) 20 mg/dL (9-23)
[2016-10-04 08:25] LABS: CARBON DIOXIDE (BICARBONATE) > 40.0 mEq/L (20-31)
[2016-10-04 12:53] LABS: POINT-OF-CARE METER ID UU13113731
[2016-10-04 18:26] LABS: POINT-OF-CARE METER ID UU13113803
[2016-10-04 21:42] LABS: POINT-OF-CARE METER ID UU13113731
[2016-10-05] VITALS (24 sets, daily range): BP systolic 75–139; BP diastolic 44–89
[2016-10-05 00:26] LABS: POINT-OF-CARE METER ID UU14162636
[2016-10-05 06:24] LABS: ANION GAP ND MEQ/L (2-14); CARBON DIOXIDE (BICARBONATE) > 40.0 MEQ/L (20-31); CHLORIDE 99 MEQ/L (99-109); GFR ESTIMATE (CALCULATED) > 59 mL/min/; GLUCOSE 158 mg/dL (70-99); POTASSIUM 4.6 MEQ/L (3.7-5.4); SAMPLE HEMOLYSIS CHECK 0; SAMPLE ICTERIC CHECK 0; SAMPLE LIPEMIA CHECK 0; SODIUM 147 MEQ/L (136-147); UREA NITROGEN (BUN) 21 mg/dL (9-23)
[2016-10-05 11:33] LABS: POINT-OF-CARE METER ID UU14162636
[2016-10-05 14:36] LABS: BICARBONATE 56.4 mEq/L (22-26); CARBOXY HGB 2.8 % (0-5); METHEMOGLOBIN 1.4 % (0-1.5); PO2 67 mm Hg (80-100)
[2016-10-05 14:37] LABS: PCO2 85 mm Hg (35-45); pH 7.43 (7.35-7.45)
[2016-10-05 14:38] LABS: COMMENTS - BLOOD GASES NAC+; DEVICE 980; FI02 35 %; MODE PAV+; PEEP 6 CM/H20; SITE LR; TOTAL RESP RATE 24 resp/min
[2016-10-05 17:41] LABS: POINT-OF-CARE METER ID UU13113731; POINT-OF-CARE USER ID 606021424
[2016-10-05 21:24] LABS: POINT-OF-CARE METER ID UU14162636
[2016-10-06] VITALS (31 sets, daily range): BP systolic 73–145; BP diastolic 42–90
[2016-10-06 00:14] LABS: POINT-OF-CARE METER ID UU14162636
[2016-10-06 06:21] LABS: POINT-OF-CARE METER ID UU14162636
[2016-10-06 06:26] LABS: ANION GAP ND MEQ/L (2-14); CHLORIDE 95 MEQ/L (99-109); GFR ESTIMATE (CALCULATED) > 59 mL/min/; GLUCOSE 144 mg/dL (70-99); POTASSIUM 4.4 MEQ/L (3.7-5.4); SAMPLE HEMOLYSIS CHECK 0; SAMPLE ICTERIC CHECK 0; SAMPLE LIPEMIA CHECK 0; SODIUM 145 MEQ/L (136-147); UREA NITROGEN (BUN) 18 mg/dL (9-23)
[2016-10-06 06:36] LABS: CARBON DIOXIDE (BICARBONATE) > 40.0 MEQ/L (20-31)
[2016-10-06 11:47] LABS: POINT-OF-CARE METER ID UU14162636
[2016-10-06 15:29] LABS: POINT-OF-CARE METER ID UU14162636
[2016-10-06 17:59] LABS: POINT-OF-CARE METER ID UU14162636
[2016-10-07] VITALS (25 sets, daily range): BP systolic 69–124; BP diastolic 38–91
[2016-10-07 00:42] LABS: POINT-OF-CARE METER ID UU13113731
[2016-10-07 06:18] LABS: POINT-OF-CARE METER ID UU13113731
[2016-10-07 09:27] LABS: ANION GAP ND MEQ/L (2-14); CHLORIDE 93 MEQ/L (99-109); GFR ESTIMATE (CALCULATED) > 59 mL/min/; GLUCOSE 132 mg/dL (70-99); POTASSIUM 4.2 MEQ/L (3.7-5.4); SAMPLE HEMOLYSIS CHECK 0; SAMPLE ICTERIC CHECK 0; SAMPLE LIPEMIA CHECK 0; SODIUM 142 MEQ/L (136-147); UREA NITROGEN (BUN) 15 mg/dL (9-23)
[2016-10-07 09:28] LABS: CARBON DIOXIDE (BICARBONATE) > 40.0 MEQ/L (20-31)
[2016-10-07 12:25] LABS: POINT-OF-CARE METER ID UU14162636
[2016-10-07 17:18] LABS: POINT-OF-CARE METER ID UU14162636
[2016-10-07 21:08] LABS: POINT-OF-CARE METER ID UU14162636
[2016-10-08] VITALS (34 sets, daily range): BP systolic 71–148; BP diastolic 41–99
[2016-10-08 00:34] LABS: POINT-OF-CARE METER ID UU14162636
[2016-10-08 06:23] LABS: EOSINOPHIL (%) 0 % (0-5); HEMATOCRIT 19.6 % (36.0-46.0); IMMATURE GRANULOCYTE (%) 4.6 % (0.0-0.7); IMMATURE GRANULOCYTE COUNT 0.3 K/uL; INSTRUMENT ABS NEUTROPHIL CT 5.7 K/uL; LYMPHOCYTE COUNT 0.3 K/uL (1.0-2.8); MCH 28.5 PG (29.0-34.0); MCHC 30.1 G/DL (30.0-36.0); MCV 94.7 FL (83-99); MEAN PLAT.VOLUME 9.9 uM^3 (9.5-12.4); MONOCYTE (%) 4.9 % (3-12); MONOCYTE COUNT 0.3 K/uL (0-0.8); NEUTROPHIL (%) 85.4 % (45-76); NEUTROPHIL COUNT 5.7 K/uL (1.8-6.4); NRBC (%) 2.7 /100 WBC (0-0); PLATELET COUNT 262 K/uL (156-360); RBC DIS.WIDTH-SD 64.6 % (39-53); RED BLOOD COUNT 2.07 M/uL (3.80-5.20); WHITE BLOOD COUNT 6.7 K/uL (4.1-10.2)
[2016-10-08 06:40] LABS: ANION GAP ND MEQ/L (2-14); CHLORIDE 92 MEQ/L (99-109); GFR ESTIMATE (CALCULATED) > 59 mL/min/; GLUCOSE 164 mg/dL (70-99); MAGNESIUM 1.8 mg/dl (1.3-2.7); POTASSIUM 4.2 MEQ/L (3.7-5.4); SAMPLE HEMOLYSIS CHECK 0; SAMPLE ICTERIC CHECK 0; SAMPLE LIPEMIA CHECK 0; SODIUM 144 MEQ/L (136-147); UREA NITROGEN (BUN) 17 mg/dL (9-23)
[2016-10-08 06:44] LABS: CARBON DIOXIDE (BICARBONATE) > 40.0 MEQ/L (20-31)
[2016-10-08 07:35] LABS: HEMATOCRIT 19.2 % (36.0-46.0); MCV 95.5 FL (83-99)
[2016-10-08 09:29] LABS: INTER. NORMALIZED RATIO 1.1; PROTHROMBIN TIME 10.8 (9.2-11.2); PTT 28.1 (25-32)
[2016-10-08 18:16] LABS: MCV 88.5 FL (83-99)
[2016-10-08 22:20] LABS: POINT-OF-CARE USER ID PHATLC
[2016-10-09] VITALS (22 sets, daily range): BP systolic 81–137; BP diastolic 42–82
[2016-10-09 00:31] LABS: POINT-OF-CARE USER ID PHATLC
[2016-10-09 00:55] LABS: HEMATOCRIT 36.4 % (36.0-46.0); MCV 88.6 FL (83-99)
[2016-10-09 06:07] LABS: EOSINOPHIL (%) 0 % (0-5); HEMATOCRIT 34.1 % (36.0-46.0); IMMATURE GRANULOCYTE (%) 2.1 % (0.0-0.7); IMMATURE GRANULOCYTE COUNT 0.2 K/uL; INSTRUMENT ABS NEUTROPHIL CT 7.8 K/uL; LYMPHOCYTE COUNT 0.3 K/uL (1.0-2.8); MCHC 31.1 G/DL (30.0-36.0); MONOCYTE (%) 3.2 % (3-12); MONOCYTE COUNT 0.3 K/uL (0-0.8); NEUTROPHIL (%) 91.2 % (45-76); NEUTROPHIL COUNT 7.8 K/uL (1.8-6.4); NRBC (%) 1.8 /100 WBC (0-0); PLATELET COUNT 268 K/uL (156-360); RBC DIS.WIDTH-CV 18.9 % (11.8-14.6); RBC DIS.WIDTH-SD 59.8 % (39-53); WHITE BLOOD COUNT 8.5 K/uL (4.1-10.2)
[2016-10-09 06:18] LABS: RED BLOOD COUNT 3.79 M/uL (3.80-5.20)
[2016-10-09 06:34] LABS: POINT-OF-CARE USER ID PHATLC
[2016-10-09 06:42] LABS: ANION GAP ND MEQ/L (2-14); CHLORIDE 96 MEQ/L (99-109); GFR ESTIMATE (CALCULATED) > 59 mL/min/; GLUCOSE 145 mg/dL (70-99); POTASSIUM 3.8 MEQ/L (3.7-5.4); SAMPLE HEMOLYSIS CHECK 0; SAMPLE ICTERIC CHECK 0; SAMPLE LIPEMIA CHECK 0; SODIUM 143 MEQ/L (136-147); UREA NITROGEN (BUN) 17 mg/dL (9-23)
[2016-10-09 06:44] LABS: CARBON DIOXIDE (BICARBONATE) > 40.0 MEQ/L (20-31)
[2016-10-09 07:57] LABS: MAGNESIUM 2.1 mg/dl (1.3-2.7)
[2016-10-09 11:56] LABS: HEMATOCRIT 36.3 % (36.0-46.0)
[2016-10-09 17:48] LABS: POINT-OF-CARE METER ID UU13113803; POINT-OF-CARE USER ID 612031313
[2016-10-09 23:13] LABS: POINT-OF-CARE METER ID UU13113803; POINT-OF-CARE USER ID PHATLC
[2016-10-10] VITALS (24 sets, daily range): BP systolic 88–135; BP diastolic 48–79
[2016-10-10 00:27] LABS: POINT-OF-CARE METER ID UU13113803; POINT-OF-CARE USER ID PHATLC
[2016-10-10 05:27] LABS: POINT-OF-CARE METER ID UU14162636; POINT-OF-CARE USER ID PHATLC
[2016-10-10 05:35] LABS: EOSINOPHIL (%) 0 % (0-5); HEMATOCRIT 37.4 % (36.0-46.0); IMMATURE GRANULOCYTE (%) 1.4 % (0.0-0.7); IMMATURE GRANULOCYTE COUNT 0.1 K/uL; INSTRUMENT ABS NEUTROPHIL CT 6.8 K/uL; LYMPHOCYTE COUNT 0.2 K/uL (1.0-2.8); MCH 27.7 PG (29.0-34.0); MCHC 29.9 G/DL (30.0-36.0); MCV 92.3 FL (83-99); MEAN PLAT.VOLUME 9.8 uM^3 (9.5-12.4); MONOCYTE (%) 2.9 % (3-12); MONOCYTE COUNT 0.2 K/uL (0-0.8); NEUTROPHIL (%) 93.3 % (45-76); NEUTROPHIL COUNT 6.8 K/uL (1.8-6.4); NRBC (%) 0.8 /100 WBC (0-0); PLATELET COUNT 297 K/uL (156-360); RBC DIS.WIDTH-SD 58.9 % (39-53); RED BLOOD COUNT 4.05 M/uL (3.80-5.20); WHITE BLOOD COUNT 7.3 K/uL (4.1-10.2)
[2016-10-10 05:52] LABS: ANION GAP 4 MEQ/L (2-14); CHLORIDE 98 MEQ/L (99-109); GFR ESTIMATE (CALCULATED) > 59 mL/min/; GLUCOSE 137 mg/dL (70-99); MAGNESIUM 2.1 mg/dl (1.3-2.7); POTASSIUM 3.9 MEQ/L (3.7-5.4); SAMPLE HEMOLYSIS CHECK 0; SAMPLE ICTERIC CHECK 0; SAMPLE LIPEMIA CHECK 0; SODIUM 142 MEQ/L (136-147); UREA NITROGEN (BUN) 20 mg/dL (9-23)
[2016-10-10 13:56] LABS: BASE EXCESS 13.5 mEq/L (-3 to +3); CARBOXY HGB 2.3 % (0-5); METHEMOGLOBIN 1.3 % (0-1.5); pH 7.34 (7.35-7.45)
[2016-10-10 13:57] LABS: BICARBONATE 42.6 mEq/L (22-26); COMMENTS - BLOOD GASES A+C+; DEVICE 980; FI02 35 %; MODE TC; PCO2 79 mm Hg (35-45); PO2 89 mm Hg (80-100); SITE LR; TOTAL RESP RATE 23 resp/min
[2016-10-10 14:04] LABS: POC NON-PRINT COM 1 ND
[2016-10-11] VITALS (17 sets, daily range): BP systolic 96–134; BP diastolic 49–81
[2016-10-11 05:46] LABS: EOSINOPHIL (%) 0 % (0-5); IMMATURE GRANULOCYTE COUNT 0.1 K/uL; INSTRUMENT ABS NEUTROPHIL CT 6.7 K/uL; LYMPHOCYTE COUNT 0.3 K/uL (1.0-2.8); MCH 28.5 PG (29.0-34.0); MCHC 30.8 G/DL (30.0-36.0); MCV 92.3 FL (83-99); MEAN PLAT.VOLUME 9.9 uM^3 (9.5-12.4); MONOCYTE (%) 4.2 % (3-12); MONOCYTE COUNT 0.3 K/uL (0-0.8); NEUTROPHIL (%) 90.5 % (45-76); NEUTROPHIL COUNT 6.7 K/uL (1.8-6.4); NRBC (%) 0.3 /100 WBC (0-0); PLATELET COUNT 298 K/uL (156-360); RBC DIS.WIDTH-CV 17.5 % (11.8-14.6); RBC DIS.WIDTH-SD 57.4 % (39-53); WHITE BLOOD COUNT 7.4 K/uL (4.1-10.2)
[2016-10-11 06:11] LABS: MAGNESIUM 1.9 mg/dl (1.3-2.7)
[2016-10-11 06:31] LABS: ANION GAP 6 MEQ/L (2-14); CHLORIDE 97 MEQ/L (99-109); GFR ESTIMATE (CALCULATED) > 59 mL/min/; POTASSIUM 3.6 MEQ/L (3.7-5.4); SAMPLE HEMOLYSIS CHECK 0; SAMPLE ICTERIC CHECK 0; SAMPLE LIPEMIA CHECK 0; SODIUM 143 MEQ/L (136-147); UREA NITROGEN (BUN) 20 mg/dL (9-23)
[2016-10-11 06:33] LABS: GLUCOSE 99 mg/dL (70-99)
[2016-10-11 12:19] LABS: POINT-OF-CARE METER ID UU14162636
[2016-10-11 20:42] LABS: POINT-OF-CARE USER ID LABLCH83
[2016-10-12] VITALS (24 sets, daily range): BP systolic 80–143; BP diastolic 46–91
[2016-10-12 06:11] LABS: EOSINOPHIL (%) 0 % (0-5); HEMATOCRIT 38.5 % (36.0-46.0); IMMATURE GRANULOCYTE (%) 0.7 % (0.0-0.7); IMMATURE GRANULOCYTE COUNT 0.1 K/uL; INSTRUMENT ABS NEUTROPHIL CT 6.3 K/uL; LYMPHOCYTE COUNT 0.6 K/uL (1.0-2.8); MCH 28.3 PG (29.0-34.0); MCHC 30.6 G/DL (30.0-36.0); MCV 92.3 FL (83-99); MEAN PLAT.VOLUME 9.6 uM^3 (9.5-12.4); MONOCYTE (%) 3.5 % (3-12); MONOCYTE COUNT 0.3 K/uL (0-0.8); NEUTROPHIL (%) 87.1 % (45-76); NEUTROPHIL COUNT 6.3 K/uL (1.8-6.4); NRBC (%) 0.3 /100 WBC (0-0); PLATELET COUNT 336 K/uL (156-360); RBC DIS.WIDTH-CV 17.6 % (11.8-14.6); RBC DIS.WIDTH-SD 57.1 % (39-53); RED BLOOD COUNT 4.17 M/uL (3.80-5.20); WHITE BLOOD COUNT 7.2 K/uL (4.1-10.2)
[2016-10-12 06:32] LABS: MAGNESIUM 2.1 mg/dl (1.3-2.7)
[2016-10-12 06:44] LABS: ANION GAP ND MEQ/L (2-14); CHLORIDE 97 MEQ/L (99-109); GFR ESTIMATE (CALCULATED) > 59 mL/min/; POTASSIUM 3.8 MEQ/L (3.7-5.4); SAMPLE HEMOLYSIS CHECK 0; SAMPLE ICTERIC CHECK 0; SAMPLE LIPEMIA CHECK 0; SODIUM 146 MEQ/L (136-147); UREA NITROGEN (BUN) 18 mg/dL (9-23)
[2016-10-12 06:45] LABS: CARBON DIOXIDE (BICARBONATE) > 40.0 MEQ/L (20-31); GLUCOSE 45 mg/dL (70-99)
[2016-10-12 21:57] LABS: POINT-OF-CARE USER ID PHATLC
[2016-10-13] VITALS (22 sets, daily range): BP systolic 81–134; BP diastolic 27–76
[2016-10-13 00:15] LABS: POINT-OF-CARE USER ID PHATLC
[2016-10-13 05:26] LABS: POINT-OF-CARE USER ID PHATLC
[2016-10-13 06:06] LABS: EOSINOPHIL (%) 0 % (0-5); HEMATOCRIT 37.9 % (36.0-46.0); IMMATURE GRANULOCYTE (%) 0.8 % (0.0-0.7); IMMATURE GRANULOCYTE COUNT 0.1 K/uL; LYMPHOCYTE COUNT 0.4 K/uL (1.0-2.8); MCH 27.6 PG (29.0-34.0); MCHC 30.1 G/DL (30.0-36.0); MCV 91.8 FL (83-99); MEAN PLAT.VOLUME 9.9 uM^3 (9.5-12.4); MONOCYTE COUNT 0.1 K/uL (0-0.8); NEUTROPHIL (%) 90.9 % (45-76); PLATELET COUNT 308 K/uL (156-360); RBC DIS.WIDTH-CV 17.5 % (11.8-14.6); RBC DIS.WIDTH-SD 57.8 % (39-53); RED BLOOD COUNT 4.13 M/uL (3.80-5.20); WHITE BLOOD COUNT 6.5 K/uL (4.1-10.2)
[2016-10-13 06:26] LABS: MAGNESIUM 1.9 mg/dl (1.3-2.7)
[2016-10-13 12:58] LABS: POINT-OF-CARE METER ID UU14174217
[2016-10-14] VITALS (14 sets, daily range): BP systolic 92–130; BP diastolic 42–93
[2016-10-14 06:16] LABS: EOSINOPHIL (%) 0 % (0-5); HEMATOCRIT 34.7 % (36.0-46.0); IMMATURE GRANULOCYTE (%) 0.7 % (0.0-0.7); INSTRUMENT ABS NEUTROPHIL CT 3.8 K/uL; LYMPHOCYTE COUNT 0.5 K/uL (1.0-2.8); MCH 28.2 PG (29.0-34.0); MCHC 30.8 G/DL (30.0-36.0); MCV 91.3 FL (83-99); MEAN PLAT.VOLUME 9.7 uM^3 (9.5-12.4); MONOCYTE (%) 3.4 % (3-12); MONOCYTE COUNT 0.2 K/uL (0-0.8); NEUTROPHIL COUNT 3.8 K/uL (1.8-6.4); PLATELET COUNT 296 K/uL (156-360); RBC DIS.WIDTH-SD 56.3 % (39-53)
[2016-10-14 06:35] LABS: MAGNESIUM 1.8 mg/dl (1.3-2.7)
[2016-10-14 06:52] LABS: WHITE BLOOD COUNT 4.4 K/uL (4.1-10.2)
[2016-10-14 11:37] LABS: POINT-OF-CARE METER ID UU13113803
[2016-10-15] VITALS: BP 133/25
[2016-10-15 02:00] VITALS: BP 80/47
[2016-10-15 05:25] LABS: EOSINOPHIL (%) 0 % (0-5); HEMATOCRIT 33.4 % (36.0-46.0); IMMATURE GRANULOCYTE (%) 0.9 % (0.0-0.7); INSTRUMENT ABS NEUTROPHIL CT 3.9 K/uL; LYMPHOCYTE COUNT 0.3 K/uL (1.0-2.8); MCH 28.4 PG (29.0-34.0); MCHC 31.1 G/DL (30.0-36.0); MCV 91.3 FL (83-99); MONOCYTE (%) 3.5 % (3-12); MONOCYTE COUNT 0.2 K/uL (0-0.8); NEUTROPHIL (%) 89.2 % (45-76); NEUTROPHIL COUNT 3.9 K/uL (1.8-6.4); PLATELET COUNT 290 K/uL (156-360); RBC DIS.WIDTH-CV 17.1 % (11.8-14.6); RBC DIS.WIDTH-SD 56.3 % (39-53); RED BLOOD COUNT 3.66 M/uL (3.80-5.20); WHITE BLOOD COUNT 4.3 K/uL (4.1-10.2)
[2016-10-15 06:36] LABS: MAGNESIUM 1.8 mg/dl (1.3-2.7)
[2016-10-15 08:00] VITALS: BP 116/54
[2016-10-15 10:06] LABS: ALKALINE PHOSPHATASE 56 IU/L (3-129); ANION GAP 12 MEQ/L (2-14); CHLORIDE 94 MEQ/L (99-109); GFR ESTIMATE (CALCULATED) > 59 mL/min/; GLUCOSE 242 mg/dL (70-99); POTASSIUM 4.3 MEQ/L (3.7-5.4); SODIUM 142 MEQ/L (136-147); TOTAL BILIRUBIN 0.6 MG/DL (0.0-1.0); UREA NITROGEN (BUN) 19 mg/dL (9-23)
[2016-10-15 11:50] LABS: POINT-OF-CARE METER ID UU13113803
[2016-10-15 12:00] VITALS: BP 113/71
[2016-10-15 16:00] VITALS: BP 92/44
[2016-10-15 22:00] VITALS: BP 102/56
[2016-10-16] VITALS (11 sets, daily range): BP systolic 74–125; BP diastolic 44–79
[2016-10-16 00:20] LABS: POINT-OF-CARE METER ID UU13113731
[2016-10-16 05:40] LABS: EOSINOPHIL (%) 0.2 % (0-5); HEMATOCRIT 33.3 % (36.0-46.0); IMMATURE GRANULOCYTE (%) 0.9 % (0.0-0.7); IMMATURE GRANULOCYTE COUNT 0.1 K/uL; LYMPHOCYTE COUNT 1.1 K/uL (1.0-2.8); MCH 28.3 PG (29.0-34.0); MCHC 30.9 G/DL (30.0-36.0); MCV 91.5 FL (83-99); MEAN PLAT.VOLUME 9.3 uM^3 (9.5-12.4); MONOCYTE (%) 7.5 % (3-12); MONOCYTE COUNT 0.4 K/uL (0-0.8); NEUTROPHIL (%) 72.2 % (45-76); PLATELET COUNT 313 K/uL (156-360); RBC DIS.WIDTH-CV 16.8 % (11.8-14.6); RBC DIS.WIDTH-SD 55.7 % (39-53); RED BLOOD COUNT 3.64 M/uL (3.80-5.20)
[2016-10-16 05:41] LABS: WHITE BLOOD COUNT 5.6 K/uL (4.1-10.2)
[2016-10-16 06:12] LABS: ALKALINE PHOSPHATASE 56 IU/L (3-129); ANION GAP 6 MEQ/L (2-14); CHLORIDE 102 MEQ/L (99-109); GFR ESTIMATE (CALCULATED) > 59 mL/min/; MAGNESIUM 1.8 mg/dl (1.3-2.7); SAMPLE HEMOLYSIS CHECK 0; SAMPLE ICTERIC CHECK 0; SAMPLE LIPEMIA CHECK 0; SODIUM 146 MEQ/L (136-147); UREA NITROGEN (BUN) 14 mg/dL (9-23)
[2016-10-16 06:13] LABS: GLUCOSE 41 mg/dL (70-99); POTASSIUM 3.4 MEQ/L (3.7-5.4); TOTAL BILIRUBIN 0.4 MG/DL (0.0-1.0)
[2016-10-16 06:22] LABS: POINT-OF-CARE METER ID UU13113731
[2016-10-16 08:20] LABS: BASE EXCESS 17.4 mEq/L (-3 to +3); BICARBONATE 46.2 mEq/L (22-26); CARBOXY HGB 2.2 % (0-5); METHEMOGLOBIN 1.5 % (0-1.5); PCO2 80 mm Hg (35-45); PO2 69 mm Hg (80-100); pH 7.37 (7.35-7.45)
[2016-10-16 08:21] LABS: COMMENTS - BLOOD GASES A+C+; DEVICE 980; FI02 35 %; MODE SPONT; PEEP 5 CM/H20; PRES. SUPPORT 6 CM/H2O; SITE RR; TOTAL RESP RATE 22 resp/min
[2016-10-16 10:53] LABS: POINT-OF-CARE METER ID UU13113731
[2016-10-16 11:23] LABS: POINT-OF-CARE USER ID LABLCH83
[2016-10-16 11:27] LABS: POINT-OF-CARE METER ID UU13113731
[2016-10-16 15:22] LABS: TROP-I INTERPRETATION NEGATIVE; TROPONIN-I 0.03 ng/mL (0.0-0.30)
[2016-10-16 21:44] LABS: TROP-I INTERPRETATION NEGATIVE; TROPONIN-I 0.02 ng/mL (0.0-0.30)
[2016-10-17] VITALS: BP 88/51
[2016-10-17 03:17] LABS: EOSINOPHIL (%) 0 % (0-5); HEMATOCRIT 34.3 % (36.0-46.0); IMMATURE GRANULOCYTE (%) 2.1 % (0.0-0.7); IMMATURE GRANULOCYTE COUNT 0.1 K/uL; INSTRUMENT ABS NEUTROPHIL CT 4.1 K/uL; MCH 28.2 PG (29.0-34.0); MCHC 30.3 G/DL (30.0-36.0); MEAN PLAT.VOLUME 9.7 uM^3 (9.5-12.4); MONOCYTE COUNT 0.5 K/uL (0-0.8); NEUTROPHIL (%) 71.2 % (45-76); NEUTROPHIL COUNT 4.1 K/uL (1.8-6.4); PLATELET COUNT 310 K/uL (156-360); RBC DIS.WIDTH-CV 17.1 % (11.8-14.6); RBC DIS.WIDTH-SD 57.1 % (39-53); RED BLOOD COUNT 3.69 M/uL (3.80-5.20); WHITE BLOOD COUNT 5.8 K/uL (4.1-10.2)
[2016-10-17 03:33] LABS: CHLORIDE 101 mEq/L (99-109); MAGNESIUM 1.5 mg/dL (1.3-2.7); POTASSIUM 3.6 mEq/L (3.7-5.4); SODIUM 142 mEq/L (136-147)
[2016-10-17 03:36] LABS: GLUCOSE 172 mg/dL (70-99)
[2016-10-17 03:37] LABS: ANION GAP 6 MEQ/L (2-14); TOTAL BILIRUBIN 0.3 mg/dL (0.0-1.0)
[2016-10-17 03:39] LABS: ALKALINE PHOSPHATASE 58 IU/L (3-129); GFR ESTIMATE (CALCULATED) > 59 mL/min/
[2016-10-17 03:40] LABS: UREA NITROGEN (BUN) 12 mg/dL (9-23)
[2016-10-17 03:44] LABS: TROP-I INTERPRETATION NEGATIVE; TROPONIN-I 0.02 ng/mL (0.0-0.30)
[2016-10-17 04:00] VITALS: BP 113/96
[2016-10-17 04:57] LABS: POINT-OF-CARE METER ID UU14162636; POINT-OF-CARE USER ID PHATLC
[2016-10-17 08:00] VITALS: BP 143/62
[2016-10-17 11:48] LABS: POINT-OF-CARE METER ID UU14162636; POINT-OF-CARE USER ID 606021424
[2016-10-17 12:00] VITALS: BP 161/56
[2016-10-17 17:00] VITALS: BP 145/71
[2016-10-17 18:08] LABS: POINT-OF-CARE METER ID UU14174217
[2016-10-17 20:00] VITALS: BP 131/44
[2016-10-18] VITALS: BP 97/50
[2016-10-18 00:37] LABS: POINT-OF-CARE METER ID UU14162636
[2016-10-18 04:00] VITALS: BP 109/56
[2016-10-18 05:40] LABS: HEMATOCRIT 31.2 % (36.0-46.0); MCH 27.7 PG (29.0-34.0); MCHC 29.2 G/DL (30.0-36.0); MCV 94.8 FL (83-99); MEAN PLAT.VOLUME 9.7 uM^3 (9.5-12.4); PLATELET COUNT 306 K/uL (156-360); RBC DIS.WIDTH-CV 16.8 % (11.8-14.6); RBC DIS.WIDTH-SD 58.1 % (39-53); RED BLOOD COUNT 3.29 M/uL (3.80-5.20); WHITE BLOOD COUNT 5.7 K/uL (4.1-10.2)
[2016-10-18 05:42] LABS: POINT-OF-CARE METER ID UU13113731
[2016-10-18 06:13] LABS: ALKALINE PHOSPHATASE 60 IU/L (3-129); ANION GAP 5 MEQ/L (2-14); CHLORIDE 101 MEQ/L (99-109); GFR ESTIMATE (CALCULATED) > 59 mL/min/; GLUCOSE 175 mg/dL (70-99); MAGNESIUM 1.8 mg/dl (1.3-2.7); POTASSIUM 4.3 MEQ/L (3.7-5.4); SAMPLE HEMOLYSIS CHECK 0; SAMPLE ICTERIC CHECK 0; SAMPLE LIPEMIA CHECK 0; SODIUM 144 MEQ/L (136-147); UREA NITROGEN (BUN) 8 mg/dL (9-23)
[2016-10-18 06:14] LABS: TOTAL BILIRUBIN 0.3 MG/DL (0.0-1.0)
[2016-10-18 06:44] LABS: ABS NEUTROPHIL COUNT 4.6; ANISOCYTOSIS 1+; BAND NEUTROPHILS 22.3 % (0-8.0); BASOPHILS 1.8 %; EOSINOPHIL ABS CT 0; INSTRUMENT ABS NEUTROPHIL CT 4.3 K/uL; LYMPHOCYTES 9.8 % (15.0-45.0); METAMYELOCYTES 0.9 %; MYELOCYTES 2.7 %; PLAT.SUFFICIENCY ADEQUATE
[2016-10-18 06:50] LABS: SEG.NEUTROPHILS 58.9 % (46.0-76.0)
[2016-10-18 08:00] VITALS: BP 111/64
[2016-10-18 12:00] VITALS: BP 105/58
[2016-10-18 12:20] LABS: POINT-OF-CARE METER ID UU14162636
[2016-10-18 16:00] VITALS: BP 106/60
[2016-10-18 17:24] LABS: POINT-OF-CARE METER ID UU14162636; POINT-OF-CARE USER ID 606021424
[2016-10-18 20:00] VITALS: BP 102/55
[2016-10-18 20:19] LABS: HEMATOCRIT 30.2 % (36.0-46.0); MCV 93.2 FL (83-99)
[2016-10-19] VITALS (7 sets, daily range): BP systolic 91–115; BP diastolic 48–64
[2016-10-19 00:50] LABS: POINT-OF-CARE METER ID UU13113803
[2016-10-19 05:47] LABS: HEMATOCRIT 30.9 % (36.0-46.0); MCHC 30.1 G/DL (30.0-36.0); MCV 93.1 FL (83-99); MEAN PLAT.VOLUME 9.8 uM^3 (9.5-12.4); PLATELET COUNT 320 K/uL (156-360); RBC DIS.WIDTH-CV 16.6 % (11.8-14.6); RBC DIS.WIDTH-SD 55.7 % (39-53); RED BLOOD COUNT 3.32 M/uL (3.80-5.20); WHITE BLOOD COUNT 6.1 K/uL (4.1-10.2)
[2016-10-19 06:02] LABS: POINT-OF-CARE METER ID UU14162636
[2016-10-19 06:10] LABS: ANION GAP 5 MEQ/L (2-14); CHLORIDE 100 MEQ/L (99-109); GFR ESTIMATE (CALCULATED) > 59 mL/min/; GLUCOSE 205 mg/dL (70-99); MAGNESIUM 1.6 mg/dl (1.3-2.7); POTASSIUM 4.3 MEQ/L (3.7-5.4); SAMPLE HEMOLYSIS CHECK 0; SAMPLE ICTERIC CHECK 0; SAMPLE LIPEMIA CHECK 0; SODIUM 142 MEQ/L (136-147); UREA NITROGEN (BUN) 10 mg/dL (9-23)
[2016-10-19 07:35] LABS: ABS NEUTROPHIL COUNT 5.1; ANISOCYTOSIS 1+; BAND NEUTROPHILS 14.8 % (0-8.0); BASOPHILS 0.8 %; EOSINOPHIL ABS CT 0; INSTRUMENT ABS NEUTROPHIL CT 4.4 K/uL; LYMPHOCYTES 6.1 % (15.0-45.0); MACROCYTES 1+; METAMYELOCYTES 2.6 %; MYELOCYTES 2.6 %; PLAT.SUFFICIENCY ADEQUATE; SEG.NEUTROPHILS 69.6 % (46.0-76.0); SMUDGE CELLS 2.6
[2016-10-19 17:42] LABS: POINT-OF-CARE METER ID UU14162636
[2016-10-20] VITALS (7 sets, daily range): BP systolic 103–116; BP diastolic 46–69
[2016-10-20 00:42] LABS: POINT-OF-CARE METER ID UU14162636
[2016-10-20 05:36] LABS: POINT-OF-CARE USER ID AGYTJR
[2016-10-20 06:18] LABS: HEMATOCRIT 31.3 % (36.0-46.0); MCH 28.1 PG (29.0-34.0); MCHC 30.7 G/DL (30.0-36.0); MCV 91.5 FL (83-99); MEAN PLAT.VOLUME 9.5 uM^3 (9.5-12.4); NRBC (%) 0.4 /100 WBC (0-0); PLATELET COUNT 387 K/uL (156-360); RBC DIS.WIDTH-CV 16.5 % (11.8-14.6); RBC DIS.WIDTH-SD 54.9 % (39-53); RED BLOOD COUNT 3.42 M/uL (3.80-5.20)
[2016-10-20 06:25] LABS: WHITE BLOOD COUNT 8.5 K/uL (4.1-10.2)
[2016-10-20 06:29] LABS: ANION GAP 4 MEQ/L (2-14); CHLORIDE 100 MEQ/L (99-109); GFR ESTIMATE (CALCULATED) > 59 mL/min/; GLUCOSE 210 mg/dL (70-99); MAGNESIUM 1.7 mg/dl (1.3-2.7); POTASSIUM 4.3 MEQ/L (3.7-5.4); SAMPLE HEMOLYSIS CHECK 0; SAMPLE ICTERIC CHECK 0; SAMPLE LIPEMIA CHECK 0; SODIUM 141 MEQ/L (136-147); UREA NITROGEN (BUN) 11 mg/dL (9-23)
[2016-10-20 07:52] LABS: ABS NEUTROPHIL COUNT 7.5; ANISOCYTOSIS 1+; BAND NEUTROPHILS 9.7 % (0-8.0); EOSINOPHIL ABS CT 0; INSTRUMENT ABS NEUTROPHIL CT 6.3 K/uL; LYMPHOCYTES 7.9 % (15.0-45.0); NUCLEATED RBC'S 0.9; PLAT.SUFFICIENCY INCREASED; POIKILOCYTOSIS 1+; SEG.NEUTROPHILS 78.9 % (46.0-76.0)
[2016-10-20 12:20] LABS: POINT-OF-CARE USER ID 606021424
[2016-10-21] VITALS (12 sets, daily range): BP systolic 105–139; BP diastolic 54–77
[2016-10-21 00:19] LABS: POINT-OF-CARE METER ID UU13113803; POINT-OF-CARE USER ID AGYTJR
[2016-10-21 05:44] LABS: POINT-OF-CARE METER ID UU13113803; POINT-OF-CARE USER ID AGYTJR
[2016-10-21 06:18] LABS: HEMATOCRIT 32.1 % (36.0-46.0); MCH 28.4 PG (29.0-34.0); MCHC 30.8 G/DL (30.0-36.0); MCV 92.2 FL (83-99); MEAN PLAT.VOLUME 9.6 uM^3 (9.5-12.4); NRBC (%) 1.6 /100 WBC (0-0); PLATELET COUNT 407 K/uL (156-360); RBC DIS.WIDTH-CV 17.1 % (11.8-14.6); RBC DIS.WIDTH-SD 56.9 % (39-53); RED BLOOD COUNT 3.48 M/uL (3.80-5.20); WHITE BLOOD COUNT 9.6 K/uL (4.1-10.2)
[2016-10-21 06:42] LABS: ANION GAP 6 MEQ/L (2-14); CHLORIDE 96 MEQ/L (99-109); GFR ESTIMATE (CALCULATED) > 59 mL/min/; GLUCOSE 161 mg/dL (70-99); MAGNESIUM 1.5 mg/dl (1.3-2.7); POTASSIUM 4.2 MEQ/L (3.7-5.4); SAMPLE HEMOLYSIS CHECK 0; SAMPLE ICTERIC CHECK 0; SAMPLE LIPEMIA CHECK 0; SODIUM 140 MEQ/L (136-147); UREA NITROGEN (BUN) 10 mg/dL (9-23)
[2016-10-21 07:09] LABS: ABS NEUTROPHIL COUNT 8.1; ANISOCYTOSIS 1+; BAND NEUTROPHILS 21.4 % (0-8.0); EOSINOPHIL ABS CT 0; INSTRUMENT ABS NEUTROPHIL CT 7.1 K/uL; METAMYELOCYTES 1.8 %; MICROCYTOSIS 1+; MYELOCYTES 2.7 %; NUCLEATED RBC'S 0.9; PLAT.SUFFICIENCY ADEQUATE; POLYCHROMASIA 1+; SEG.NEUTROPHILS 63.4 % (46.0-76.0)
[2016-10-21 11:37] LABS: POINT-OF-CARE METER ID UU13113803
[2016-10-22] VITALS (8 sets, daily range): BP systolic 93–108; BP diastolic 53–63
[2016-10-22 06:34] LABS: HEMATOCRIT 31.1 % (36.0-46.0); MCH 28.2 PG (29.0-34.0); MCHC 30.5 G/DL (30.0-36.0); MCV 92.3 FL (83-99); MEAN PLAT.VOLUME 9.3 uM^3 (9.5-12.4); NRBC (%) 2.5 /100 WBC (0-0); PLATELET COUNT 363 K/uL (156-360); RBC DIS.WIDTH-CV 17.3 % (11.8-14.6); RBC DIS.WIDTH-SD 58.7 % (39-53); RED BLOOD COUNT 3.37 M/uL (3.80-5.20); WHITE BLOOD COUNT 7.3 K/uL (4.1-10.2)
[2016-10-22 06:57] LABS: ALKALINE PHOSPHATASE 59 IU/L (3-129); ANION GAP 6 MEQ/L (2-14); CHLORIDE 96 MEQ/L (99-109); GFR ESTIMATE (CALCULATED) > 59 mL/min/; GLUCOSE 166 mg/dL (70-99); MAGNESIUM 1.5 mg/dl (1.3-2.7); POTASSIUM 3.9 MEQ/L (3.7-5.4); SAMPLE HEMOLYSIS CHECK 0; SAMPLE ICTERIC CHECK 0; SAMPLE LIPEMIA CHECK 0; SODIUM 140 MEQ/L (136-147); UREA NITROGEN (BUN) 8 mg/dL (9-23)
[2016-10-22 07:12] LABS: TOTAL BILIRUBIN 0.4 MG/DL (0.0-1.0)
[2016-10-22 08:01] LABS: ABS NEUTROPHIL COUNT 6.5; ANISOCYTOSIS 1+; ATYPICAL LYMPHOCYTE 0.9 %; BAND NEUTROPHILS 4.4 % (0-8.0); EOSINOPHIL ABS CT 0.1; EOSINOPHILS 0.9 % (0-5.0); INSTRUMENT ABS NEUTROPHIL CT 5.5 K/uL; LYMPHOCYTES 0.9 % (15.0-45.0); METAMYELOCYTES 3.5 %; MYELOCYTES 2.6 %; NUCLEATED RBC'S 0.9; PLAT.SUFFICIENCY INCREASED
[2016-10-22 22:56] LABS: POINT-OF-CARE METER ID UU14174217
[2016-10-23] VITALS (9 sets, daily range): BP systolic 91–128; BP diastolic 57–74
[2016-10-23 04:59] LABS: HEMATOCRIT 29.9 % (36.0-46.0); MCHC 30.8 G/DL (30.0-36.0); MCV 91.2 FL (83-99); MEAN PLAT.VOLUME 9.3 uM^3 (9.5-12.4); NRBC (%) 0.8 /100 WBC (0-0); PLATELET COUNT 327 K/uL (156-360); RBC DIS.WIDTH-CV 17.2 % (11.8-14.6); RBC DIS.WIDTH-SD 57.2 % (39-53); RED BLOOD COUNT 3.28 M/uL (3.80-5.20); WHITE BLOOD COUNT 7.1 K/uL (4.1-10.2)
[2016-10-23 05:13] LABS: CHLORIDE 99 mEq/L (99-109); POTASSIUM 3.9 mEq/L (3.7-5.4); SODIUM 140 mEq/L (136-147)
[2016-10-23 05:14] LABS: MAGNESIUM 1.5 mg/dL (1.3-2.7)
[2016-10-23 05:16] LABS: GLUCOSE 156 mg/dL (70-99)
[2016-10-23 05:17] LABS: ANION GAP 6 MEQ/L (2-14)
[2016-10-23 05:19] LABS: ALKALINE PHOSPHATASE 56 IU/L (3-129); GFR ESTIMATE (CALCULATED) > 59 mL/min/
[2016-10-23 05:20] LABS: UREA NITROGEN (BUN) 7 mg/dL (9-23)
[2016-10-23 05:22] LABS: TOTAL BILIRUBIN 0.4 mg/dL (0.0-1.0)
[2016-10-23 06:51] LABS: EOSINOPHIL (%) 0 % (0-5); IMMATURE GRANULOCYTE (%) 4.2 % (0.0-0.7); IMMATURE GRANULOCYTE COUNT 0.3 K/uL; INSTRUMENT ABS NEUTROPHIL CT 5.8 K/uL; LYMPHOCYTE COUNT 0.6 K/uL (1.0-2.8); MONOCYTE (%) 6.2 % (3-12); MONOCYTE COUNT 0.4 K/uL (0-0.8); NEUTROPHIL (%) 81.4 % (45-76); NEUTROPHIL COUNT 5.8 K/uL (1.8-6.4)
[2016-10-24] VITALS (11 sets, daily range): BP systolic 76–137; BP diastolic 40–66
[2016-10-24 03:11] LABS: HEMATOCRIT 28.3 % (36.0-46.0); MCHC 30.7 G/DL (30.0-36.0); PLATELET COUNT 262 K/uL (156-360); RBC DIS.WIDTH-CV 17.2 % (11.8-14.6); RBC DIS.WIDTH-SD 56.8 % (39-53); RED BLOOD COUNT 3.11 M/uL (3.80-5.20); WHITE BLOOD COUNT 6.7 K/uL (4.1-10.2)
[2016-10-24 03:27] LABS: CHLORIDE 102 mEq/L (99-109); POTASSIUM 3.2 mEq/L (3.7-5.4); SODIUM 145 mEq/L (136-147)
[2016-10-24 03:28] LABS: MAGNESIUM 1.5 mg/dL (1.3-2.7)
[2016-10-24 03:31] LABS: ANION GAP 8 MEQ/L (2-14); GLUCOSE 107 mg/dL (70-99)
[2016-10-24 03:32] LABS: TOTAL BILIRUBIN 0.4 mg/dL (0.0-1.0)
[2016-10-24 03:33] LABS: ALKALINE PHOSPHATASE 54 IU/L (3-129)
[2016-10-24 03:34] LABS: GFR ESTIMATE (CALCULATED) > 59 mL/min/
[2016-10-24 03:35] LABS: UREA NITROGEN (BUN) 5 mg/dL (9-23)
[2016-10-24 04:09] LABS: ABS NEUTROPHIL COUNT 5.9; ANISOCYTOSIS 1+; ATYPICAL LYMPHOCYTE 0.9 %; BAND NEUTROPHILS 3.5 % (0-8.0); BASOPHILS 1.7 %; EOSINOPHIL ABS CT 0; INSTRUMENT ABS NEUTROPHIL CT 5.5 K/uL; LYMPHOCYTES 5.2 % (15.0-45.0); MACROCYTES 1+; OVALOCYTES 1+; PLAT.SUFFICIENCY ADEQUATE; SEG.NEUTROPHILS 85.2 % (46.0-76.0)
[2016-10-24 08:58] LABS: POINT-OF-CARE METER ID UU14162636
[2016-10-24 09:18] LABS: POINT-OF-CARE METER ID UU14162636
[2016-10-24 09:59] LABS: POINT-OF-CARE METER ID UU13113803
[2016-10-24 12:11] LABS: POINT-OF-CARE METER ID UU13113803
[2016-10-24 16:57] LABS: POINT-OF-CARE METER ID UU13113803
[2016-10-24 22:46] LABS: POINT-OF-CARE METER ID UU13113803; POINT-OF-CARE USER ID AGYTJR
[2016-10-25] VITALS (8 sets, daily range): BP systolic 99–125; BP diastolic 53–79
[2016-10-25 06:41] LABS: HEMATOCRIT 28.4 % (36.0-46.0); MCH 28.7 PG (29.0-34.0); MCHC 30.6 G/DL (30.0-36.0); MCV 93.7 FL (83-99); MEAN PLAT.VOLUME 9.6 uM^3 (9.5-12.4); PLATELET COUNT 297 K/uL (156-360); RBC DIS.WIDTH-CV 17.1 % (11.8-14.6); RBC DIS.WIDTH-SD 58.4 % (39-53); RED BLOOD COUNT 3.03 M/uL (3.80-5.20); WHITE BLOOD COUNT 7.9 K/uL (4.1-10.2)
[2016-10-25 06:51] LABS: ALKALINE PHOSPHATASE 61 IU/L (3-129); ANION GAP 6 MEQ/L (2-14); CHLORIDE 102 MEQ/L (99-109); GFR ESTIMATE (CALCULATED) > 59 mL/min/; SAMPLE HEMOLYSIS CHECK 0; SAMPLE ICTERIC CHECK 0; SAMPLE LIPEMIA CHECK 0; SODIUM 143 MEQ/L (136-147); TOTAL BILIRUBIN 0.4 MG/DL (0.0-1.0); UREA NITROGEN (BUN) 5 mg/dL (9-23)
[2016-10-25 06:52] LABS: GLUCOSE 77 mg/dL (70-99); MAGNESIUM 1.8 mg/dl (1.3-2.7); POTASSIUM 3.9 MEQ/L (3.7-5.4)
[2016-10-25 07:12] LABS: ABS NEUTROPHIL COUNT 6.8; ANISOCYTOSIS 2+; BASOPHILS 0.9 %; EOSINOPHIL ABS CT 0; INSTRUMENT ABS NEUTROPHIL CT 6.6 K/uL; LYMPHOCYTES 3.5 % (15.0-45.0); METAMYELOCYTES 1.7 %; MYELOCYTES 0.9 %; PLAT.SUFFICIENCY ADEQUATE
[2016-10-25 07:22] LABS: BAND NEUTROPHILS 35.1 % (0-8.0); SEG.NEUTROPHILS 50.9 % (46.0-76.0)
[2016-10-25 12:18] LABS: POINT-OF-CARE METER ID UU13113803
[2016-10-25 13:53] LABS: BASE EXCESS 14.2 mEq/L (-3 to +3); BICARBONATE 40.5 mEq/L (22-26); METHEMOGLOBIN 1.5 % (0-1.5); PCO2 61 mm Hg (35-45); PO2 54 mm Hg (80-100); SITE LR; pH 7.43 (7.35-7.45)
[2016-10-25 13:54] LABS: COMMENTS - BLOOD GASES NAC+; DEVICE 840; FI02 35 %; MECHANICAL RATE 10 resp/min; MODE A/C; TOTAL RESP RATE 15 resp/min
[2016-10-25 13:56] LABS: PEEP 5 CM/H20; TIDAL VOLUME 500 ML
[2016-10-25 23:57] LABS: POINT-OF-CARE METER ID UU13113803
[2016-10-26 00:30] VITALS: BP 110/54
[2016-10-26 04:00] VITALS: BP 104/51
[2016-10-26 06:47] LABS: EOSINOPHIL (%) 0 % (0-5); HEMATOCRIT 25.5 % (36.0-46.0); INSTRUMENT ABS NEUTROPHIL CT 3.7 K/uL; LYMPHOCYTE COUNT 0.2 K/uL (1.0-2.8); MCHC 31.8 G/DL (30.0-36.0); MCV 91.4 FL (83-99); MEAN PLAT.VOLUME 9.7 uM^3 (9.5-12.4); MONOCYTE (%) 5.1 % (3-12); MONOCYTE COUNT 0.2 K/uL (0-0.8); NEUTROPHIL (%) 88.1 % (45-76); NEUTROPHIL COUNT 3.7 K/uL (1.8-6.4); PLATELET COUNT 273 K/uL (156-360); RBC DIS.WIDTH-CV 16.6 % (11.8-14.6); RBC DIS.WIDTH-SD 55.7 % (39-53); RED BLOOD COUNT 2.79 M/uL (3.80-5.20); WHITE BLOOD COUNT 4.1 K/uL (4.1-10.2)
[2016-10-26 07:39] LABS: ALKALINE PHOSPHATASE 60 IU/L (3-129); ANION GAP 8 MEQ/L (2-14); CHLORIDE 95 MEQ/L (99-109); GFR ESTIMATE (CALCULATED) > 59 mL/min/; POTASSIUM 3.6 MEQ/L (3.7-5.4); SAMPLE HEMOLYSIS CHECK 0; SAMPLE ICTERIC CHECK 0; SAMPLE LIPEMIA CHECK 0; SODIUM 143 MEQ/L (136-147); TOTAL BILIRUBIN 0.4 MG/DL (0.0-1.0); UREA NITROGEN (BUN) 7 mg/dL (9-23)
[2016-10-26 07:41] LABS: GLUCOSE 217 mg/dL (70-99)
[2016-10-26 08:00] VITALS: BP 102/63
[2016-10-26 11:12] LABS: POINT-OF-CARE METER ID UU13113803
[2016-10-26 12:00] VITALS: BP 90/49
[2016-10-26 15:42] LABS: HEMATOCRIT 26.6 % (36.0-46.0); MCV 90.2 FL (83-99)
[2016-10-26 16:00] VITALS: BP 125/54
[2016-10-26 17:04] LABS: C DIFF TOXIN NEGATIVE (NEGATIVE)
[2016-10-26 17:19] LABS: PROBE CHECK PASS; SPECIMEN PROCESSING CONTROL PASS
[2016-10-26 18:04] LABS: POINT-OF-CARE METER ID UU14174217
[2016-10-26 20:00] VITALS: BP 116/49
[2016-10-26 22:45] LABS: POINT-OF-CARE METER ID UU14174217
[2016-10-27] VITALS: BP 93/47
[2016-10-27 04:00] VITALS: BP 100/44
[2016-10-27 07:44] LABS: EOSINOPHIL (%) 0 % (0-5); HEMATOCRIT 26.8 % (36.0-46.0); IMMATURE GRANULOCYTE (%) 1.6 % (0.0-0.7); IMMATURE GRANULOCYTE COUNT 0.1 K/uL; INSTRUMENT ABS NEUTROPHIL CT 6.2 K/uL; LYMPHOCYTE COUNT 0.3 K/uL (1.0-2.8); MCH 28.5 PG (29.0-34.0); MCHC 31.3 G/DL (30.0-36.0); MCV 90.8 FL (83-99); MEAN PLAT.VOLUME 9.6 uM^3 (9.5-12.4); MONOCYTE (%) 4.5 % (3-12); MONOCYTE COUNT 0.3 K/uL (0-0.8); NEUTROPHIL COUNT 6.2 K/uL (1.8-6.4); RBC DIS.WIDTH-CV 16.7 % (11.8-14.6); RBC DIS.WIDTH-SD 55.6 % (39-53); RED BLOOD COUNT 2.95 M/uL (3.80-5.20)
[2016-10-27 07:47] LABS: PLATELET COUNT 369 K/uL (156-360); WHITE BLOOD COUNT 6.9 K/uL (4.1-10.2)
[2016-10-27 08:00] VITALS: BP 122/59
[2016-10-27 08:00] LABS: ALKALINE PHOSPHATASE 72 IU/L (3-129); ANION GAP 9 MEQ/L (2-14); CHLORIDE 96 MEQ/L (99-109); GFR ESTIMATE (CALCULATED) > 59 mL/min/; GLUCOSE 261 mg/dL (70-99); MAGNESIUM 1.8 mg/dl (1.3-2.7); POTASSIUM 3.4 MEQ/L (3.7-5.4); SAMPLE HEMOLYSIS CHECK 0; SAMPLE ICTERIC CHECK 0; SAMPLE LIPEMIA CHECK 0; SODIUM 143 MEQ/L (136-147); UREA NITROGEN (BUN) 8 mg/dL (9-23)
[2016-10-27 08:01] LABS: TOTAL BILIRUBIN 0.3 MG/DL (0.0-1.0)
[2016-10-27 12:00] VITALS: BP 100/55
[2016-10-27 16:00] VITALS: BP 110/63
[2016-10-27 20:00] VITALS: BP 110/51
[2016-10-27 22:21] LABS: POINT-OF-CARE METER ID UU13113731
[2016-10-28] VITALS: BP 117/58
[2016-10-28 04:00] VITALS: BP 103/57
[2016-10-28 04:12] LABS: EOSINOPHIL (%) 0 % (0-5); HEMATOCRIT 27.4 % (36.0-46.0); IMMATURE GRANULOCYTE COUNT 0.3 K/uL; LYMPHOCYTE COUNT 0.4 K/uL (1.0-2.8); MCH 27.8 PG (29.0-34.0); MCV 89.5 FL (83-99); MEAN PLAT.VOLUME 9.5 uM^3 (9.5-12.4); MONOCYTE (%) 5.1 % (3-12); MONOCYTE COUNT 0.4 K/uL (0-0.8); NEUTROPHIL (%) 86.4 % (45-76); NRBC (%) 0.2 /100 WBC (0-0); PLATELET COUNT 414 K/uL (156-360); RBC DIS.WIDTH-CV 16.7 % (11.8-14.6); RBC DIS.WIDTH-SD 54.6 % (39-53); RED BLOOD COUNT 3.06 M/uL (3.80-5.20)
[2016-10-28 04:24] LABS: CHLORIDE 98 mEq/L (99-109); POTASSIUM 3.5 mEq/L (3.7-5.4); SODIUM 144 mEq/L (136-147)
[2016-10-28 04:25] LABS: MAGNESIUM 1.6 mg/dL (1.3-2.7)
[2016-10-28 04:27] LABS: GLUCOSE 242 mg/dL (70-99)
[2016-10-28 04:28] LABS: ANION GAP 10 MEQ/L (2-14)
[2016-10-28 04:30] LABS: ALKALINE PHOSPHATASE 74 IU/L (3-129); GFR ESTIMATE (CALCULATED) > 59 mL/min/
[2016-10-28 04:31] LABS: UREA NITROGEN (BUN) 11 mg/dL (9-23)
[2016-10-28 04:46] LABS: TOTAL BILIRUBIN 0.3 mg/dL (0.0-1.0)
[2016-10-28 08:00] VITALS: BP 121/57
[2016-10-28 10:55] LABS: POINT-OF-CARE METER ID UU14162636
[2016-10-28 12:00] VITALS: BP 138/55
[2016-10-28 15:13] LABS: POINT-OF-CARE METER ID UU14162636
[2016-10-28 16:00] VITALS: BP 137/68
[2016-10-28 17:23] LABS: POINT-OF-CARE METER ID UU13113731
[2016-10-28 20:00] VITALS: BP 118/59
[2016-10-28 21:21] LABS: POINT-OF-CARE METER ID UU14174217
[2016-10-29] VITALS: BP 123/56
[2016-10-29 04:00] VITALS: BP 154/64
[2016-10-29 06:00] VITALS: BP 116/62
[2016-10-29 06:19] LABS: HEMATOCRIT 27.8 % (36.0-46.0); MCH 28.2 PG (29.0-34.0); MCHC 31.3 G/DL (30.0-36.0); MCV 90.3 FL (83-99); MEAN PLAT.VOLUME 9.4 uM^3 (9.5-12.4); NRBC (%) 0.2 /100 WBC (0-0); PLATELET COUNT 431 K/uL (156-360); RBC DIS.WIDTH-CV 16.6 % (11.8-14.6); RBC DIS.WIDTH-SD 55.2 % (39-53); RED BLOOD COUNT 3.08 M/uL (3.80-5.20)
[2016-10-29 06:44] LABS: MAGNESIUM 1.8 mg/dl (1.3-2.7)
[2016-10-29 07:11] LABS: ABS NEUTROPHIL COUNT 9.2; ANISOCYTOSIS 1+; EOSINOPHIL ABS CT 0; INSTRUMENT ABS NEUTROPHIL CT 8.5 K/uL; LYMPHOCYTES 4.4 % (15.0-45.0); METAMYELOCYTES 1.7 %; MYELOCYTES 0.9 %; POIKILOCYTOSIS 1+
[2016-10-29 07:54] LABS: POINT-OF-CARE METER ID UU13113731
[2016-10-29 08:00] VITALS: BP 101/52
[2016-10-29 08:52] LABS: BAND NEUTROPHILS 4.3 % (0-8.0); SEG.NEUTROPHILS 87.8 % (46.0-76.0)
[2016-10-29] MEDS ORDERED: DUONEB 2.5-0.5 M3 ML AEROSOL (10:35)
[2016-10-29] MEDS ORDERED: CARDIZEM60 MG GT (10:36)
[2016-10-29] MEDS ORDERED: DIGOXIN125 MCG GT (10:36)
[2016-10-29] MEDS ORDERED: LO-DOSE ASPIRIN81 M1 GT (10:37)
[2016-10-29] MEDS ORDERED: K-DUR20 MEQ PO (10:39)
[2016-10-29] MEDS ORDERED: SORE THROAT SP177 M1 MM (10:39)
[2016-10-29] MEDS ORDERED: XANAX0.25 MG PO (10:43)
[2016-10-29] MEDS ORDERED: ENDOCET 5-3251 EACH GT (10:43)
[2016-10-29] MEDS ORDERED: ZOLPIDEM TARTRAT5 MG GT (10:43)
[2016-10-29] MEDS ORDERED: PREDNISONE10 MG GT (10:43)
[2016-10-29 11:29] LABS: POINT-OF-CARE METER ID UU14162636
[2016-10-29 12:00] VITALS: BP 119/74
== END 2016-10-29 13:38 | DRG 3 ==
LOC: EME → EDBD 09:45 → 4WEST 13:07 → EDOF 13:07 → 4SOUTH 13:07 → 4EAST 13:07 → 4SOUTH 09-26 20:15 → 4WEST 09-30 06:47
PROVIDERS: Anesthesiology; Emergency Medicine; Hospitalist; Internal Medicine; Internal Medicine Nephrology; Internal Medicine Pulmonary Disease; Nurse Practitioner Family; Surgery Surgical Critical Care
PROC: 5A09357 Assistance with Respiratory Ventilation, Less than 24 Consecutive Hours, Continuous Positive Airway Pressure (ICD-10-PCS; principal; 2016-09-27)
PROC: 03HC3DZ Insertion of Intraluminal Device into Left Radial Artery, Percutaneous Approach (ICD-10-PCS; 2016-09-30)
PROC: 0BH17EZ Insertion of Endotracheal Airway into Trachea, Via Natural or Artificial Opening (ICD-10-PCS; 2016-09-30)
PROC: 5A1955Z Respiratory Ventilation, Greater than 96 Consecutive Hours (ICD-10-PCS; 2016-09-30)
PROC: 30233N1 Transfusion of Nonautologous Red Blood Cells into Peripheral Vein, Percutaneous Approach (ICD-10-PCS; 2016-10-08)
PROC: 0DH68UZ Insertion of Feeding Device into Stomach, Via Natural or Artificial Opening Endoscopic (ICD-10-PCS; 2016-10-11)
PROC: 0B110F4 Bypass Trachea to Cutaneous with Tracheostomy Device, Open Approach (ICD-10-PCS; 2016-10-11)
DX: J96.21 Acute and chronic respiratory failure with hypoxia (principal); J44.1 Chronic obstructive pulmonary disease with (acute) exacerbation; I48.2 Chronic atrial fibrillation; E87.3 Alkalosis; E87.2 Acidosis; J44.0 Chronic obstructive pulmonary disease with (acute) lower respiratory infection; Z79.01 Long term (current) use of anticoagulants; Z99.81 Dependence on supplemental oxygen; E11.9 Type 2 diabetes mellitus without complications; E78.5 Hyperlipidemia, unspecified; I47.1 Supraventricular tachycardia; Z87.891 Personal history of nicotine dependence; E87.4 Mixed disorder of acid-base balance; Z86.73 Personal history of transient ischemic attack (TIA), and cerebral infarction without residual deficits; I10 Essential (primary) hypertension; E87.6 Hypokalemia; G47.33 Obstructive sleep apnea (adult) (pediatric); J20.9 Acute bronchitis, unspecified; F41.0 Panic disorder [episodic paroxysmal anxiety]; E66.9 Obesity, unspecified; Z68.27 Body mass index [BMI] 27.0-27.9, adult; K56.7 Ileus, unspecified; J18.9 Pneumonia, unspecified organism; J95.851 Ventilator associated pneumonia; Y84.9 Medical procedure, unspecified as the cause of abnormal reaction of the patient, or of later complication, without mention of misadventure at the time of the procedure; N39.0 Urinary tract infection, site not specified
CPT/HCPCS: 31500; 36600; 71010; 71275; 74000; 76937; 80048; 80048 91; 80053; 80150 90; 80198; 80200; 80202; 81003; 82272; 82565; 82803; 82948; 83605; 83735; 83880; 84100; 84145 90; 84484; 85014; 85018; 85025; 85027; 85610; 85730; 86900; 86901; 86920; 87040; 87070; 87077; 87086; 87147; 87186; 87205; 87493; 87641; 92526 GN; 92610 GN; 93005; 93971; 94002; 94003; 94640; 94640 76; 94644; 94660; 94667; 94668; 94760; 94799; 97530 GO; 97530 GP; 99202; 99281; 99285; C1751; J0153; J0278; J0456; J0690; J0692; J0696; J1120; J1160; J1644; J1650; J1815; J1885; J1940; J2060; J2250; J2543; J2704; J2920; J2930; J3010; J3260; J3370; J3475; J3480; J7030; J7040; J7050; J7512; P9016; P9045

== ENCOUNTER → 2016-12-02 | Outpatient (CLI) | payer OTHER ==
[~2016-12-02] MED LIST changes: +ALAVERT10 M1 PO; +AMBIEN10 MG PO; +CARDIZEM30 MG GT; +CARDIZEM60 MG GT; +DIGOXIN125 MCG GT; +ENDOCET 5-3251 EACH GT; +FLEET ENEMA-AD118 ML PR; +FLORASTOR250 MG PO; +K-DUR20 MEQ PO; +KLOR-CON SPRIN10 MEQ PO; +LO-DOSE ASPIRIN81 M1 GT; +LO-DOSE ASPIRIN81 M1 PO; -METFORMIN HCL1000 MG GT; +MILK OF MAGN PO; +NICODERM CQ1 EAC1 TD; +NOVOLOG 10100 UNITS/ SC; +PREDNISONE10 MG GT; +SORE THROAT SP177 M1 MM; +TAB-A-VITE1 EACH PO; +THEO-24200 MG PO; +THEO-24300 MG PO; +ZOFRAN4 MG PO; +ZOLPIDEM TARTRAT5 MG GT
== END ==
LOC: EDSTATUS 14:30 → RAD 14:30
PROC: 0DH67UZ Insertion of Feeding Device into Stomach, Via Natural or Artificial Opening (ICD-10-PCS; principal; 2016-12-02)
DX: K94.23 Gastrostomy malfunction (principal)
CPT/HCPCS: B4087; C1766; C1769

== ENCOUNTER 2017-01-05 17:12 | Emergency (ER) | payer OTHER ==
[~2017-01-05] VITALS: Ht 157.5 cm; Wt 70.6 kg
[2017-01-05 17:43] LABS: EOSINOPHIL (%) 0 % (0-5); HEMATOCRIT 30.3 % (36.0-46.0); IMMATURE GRANULOCYTE (%) 0.7 % (0.0-0.7); IMMATURE GRANULOCYTE COUNT 0.1 K/uL; INSTRUMENT ABS NEUTROPHIL CT 11.3 K/uL; LYMPHOCYTE COUNT 0.6 K/uL (1.0-2.8); MCH 28.8 PG (29.0-34.0); MCHC 30.7 G/DL (30.0-36.0); MCV 93.8 FL (83-99); MEAN PLAT.VOLUME 8.5 uM^3 (9.5-12.4); MONOCYTE (%) 0.6 % (3-12); MONOCYTE COUNT 0.1 K/uL (0-0.8); NEUTROPHIL (%) 93.9 % (45-76); NEUTROPHIL COUNT 11.3 K/uL (1.8-6.4); PLATELET COUNT 552 K/uL (156-360); RBC DIS.WIDTH-CV 19.4 % (11.8-14.6); RBC DIS.WIDTH-SD 66.9 % (39-53); RED BLOOD COUNT 3.23 M/uL (3.80-5.20)
[2017-01-05 17:49] LABS: BASE EXCESS 15.6 mEq/L (-3 to +3); BICARBONATE 42.1 mEq/L (22-26); CARBOXY HGB 2.2 % (0-5); COMMENTS - BLOOD GASES A+C+; DEVICE 840; FI02 30 %; MECHANICAL RATE 12 resp/min; METHEMOGLOBIN 1.4 % (0-1.5); MODE SIMV; PCO2 62 mm Hg (35-45); PO2 55 mm Hg (80-100); SITE LR; TIDAL VOLUME 400 ML; TOTAL RESP RATE 23 resp/min; pH 7.44 (7.35-7.45)
[2017-01-05 17:50] LABS: PEEP 5 CM/H20; PRES. SUPPORT 14 CM/H2O
[2017-01-05 17:52] LABS: CHLORIDE 94 mEq/L (99-109); POTASSIUM 4.4 mEq/L (3.7-5.4); SODIUM 139 mEq/L (136-147)
[2017-01-05 17:54] LABS: GLUCOSE 272 mg/dL (70-99)
[2017-01-05 17:55] LABS: ANION GAP 13 MEQ/L (2-14)
[2017-01-05 17:58] LABS: GFR ESTIMATE (CALCULATED) > 59 mL/min/
[2017-01-05 17:59] LABS: UREA NITROGEN (BUN) 12 mg/dL (9-23)
[2017-01-05 18:04] LABS: TROP-I INTERPRETATION NEGATIVE; TROPONIN-I < 0.01 ng/mL (0.0-0.30)
[2017-01-05 19:57] VITALS: BP 102/62
== END 2017-01-05 19:17 | disposition designated cancer center or children's hospital (05) ==
LOC: EME 17:12
PROVIDERS: Emergency Medicine
PROC: 5A1935Z Respiratory Ventilation, Less than 24 Consecutive Hours (ICD-10-PCS; principal; 2017-01-05)
DX: J95.03 Malfunction of tracheostomy stoma (principal); Y83.3 Surgical operation with formation of external stoma as the cause of abnormal reaction of the patient, or of later complication, without mention of misadventure at the time of the procedure; Y92.239 Unspecified place in hospital as the place of occurrence of the external cause; Z99.11 Dependence on respirator [ventilator] status; I10 Essential (primary) hypertension; J44.9 Chronic obstructive pulmonary disease, unspecified; E11.9 Type 2 diabetes mellitus without complications; E78.5 Hyperlipidemia, unspecified; K21.9 Gastro-esophageal reflux disease without esophagitis; Z86.73 Personal history of transient ischemic attack (TIA), and cerebral infarction without residual deficits; F32.9 Major depressive disorder, single episode, unspecified; Z79.84 Long term (current) use of oral hypoglycemic drugs; Z87.891 Personal history of nicotine dependence
CPT/HCPCS: 36600; 71010; 80048; 82803; 84484; 85025; 87070; 87077; 87147; 87186; 87205; 93005; 94002; 99281; 99285; J7644

== ENCOUNTER → 2017-01-29 | Outpatient (CLI) | payer OTHER | END | disposition designated cancer center or children's hospital (05) | LOC: AMB 09:59 | DX: Z43.1 Encounter for attention to gastrostomy (principal) | CPT/HCPCS: 99212 ==